=== PATIENT | female | born 1955 | race Two or more races ===

== ENCOUNTER 2025-07-20 08:08 | Inpatient (IN) | payer OTHER ==
[2025-07-20] VITALS (7 sets, daily range): BP systolic 134–155; BP diastolic 56–72; PULSE 95–104; RESP 16–22; TEMP 97.8; O2SAT 94–98
[~2025-07-20] VITALS: Ht 154.9 cm; Wt 144.0 kg
[2025-07-20] MEDS: SODIUM CHLORIDE 0.9% 250 ML IV ONE (09:00)
--- NOTE | 2025-07-20 09:24 | ED.PDOC ---
History of Present Illness HPI Comments Ms. Galan is a 70 year old female with PMHx of COPD on home oxygen PRN, ESRD on dialysis - M/W/F, type 2 diabetes mellitus, hyperlipidemia, NH s/p PCI x 5 HOME, and hypothyroidism, who presents today accompanied by her , Avni, due to chief complaint of left sided flank pain. She reports that last night she had sudden onset of left sided flank described as sharp, radiating toward left lumbar and lower quadrant, 10/10 intensity, associated with nausea, vomiting, febrile sensation, chills, and weakness, without aggravating or relieving factors. She states she still produces some urine, but denies dysuria, hematuria, or changes in said urine. Additionally denies chest pain, palpitatio ns, light headedness, cough, nasal congestion or discharge, and loss of consciousness. Due to persistence of symptoms, she presents to ED for further evaluation. 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 Family History Family History: Family hx of DM Social History Smoker: Non-Smoker Alcohol: Denies ETOH Use Drugs: Denies Drug Use Lives In: Home Constitutional: reports: chills, weakness, others (Febrile sensation ); denies: diaphoresis, fatigue, malaise, sweats EENTM: denies: blurred vision, double vision, ear discharge, ear drainage, ear pain, ear ringing, eye pain, eye redness, hearing loss, mouth pain, nasal discharge, nose bleeding, nose congestion, nose pain, photophobia, tearing, throat pain, throat swelling Respiratory: reports: cough, SOB at rest; denies: hemoptysis, orthopnea, shortness of breath Cardiovascular: denies: chest pain, dizzy spells, diaphoresis, Dyspnea on exertion, edema, irregular heart beat, left arm pain, lightheadedness, palpitations Gastrointestinal: reports: abdominal pain, diarrhea, nausea, vomiting; denies: abdomen distended, blood streaked bowels, constipated, dysphagia, difficulty swallowing, hematemesis, melena, poor appetite, poor fluid intake, rectal bleeding, rectal pain Genitourinary: reports: flank pain; denies: abnormal vagina bleeding, burning, dysuria, frequency, hematuria, incontinence, pain, urgency Neurological: denies: dizziness, fainting, headache, left sided numbness, left sided weakness, numbness, paresthesia, pre-existing deficit, right sided numbness, right sided weakness, seizure, speech problems, tingling, tremors, weakness Musculoskeletal: denies: back pain, joint pain, joint swelling, muscle pain, muscle stiffness, neck pain Integumetry: denies: bruises, change in color, laceration, lesions, lumps, rash, wounds Physical Exam General Appearance: Mild Distress, Obese HEENT: Normal ENT Inspection, PERRL/EOMI, Pharynx Normal Neck: Full Range of Motion, Non-Tender, Normal Inspection Respiratory: Chest Non-Tender, Crackles (Bilateral lower melchor ), No Accessory Muscle Use, No Respiratory Distress Cardiovascular: No JVD, No Murmur, Normal Peripheral Pulses, Regular Rate/Rhythm, Other (Mild bilateral pitting edema +1) Breast Exam: Deferred Gastrointestinal: No Pulsatile Mass, Normal Bowel Sounds, Soft, Tenderness (Pain to palpation of L lumbar and lower quadrant, Left CVA tenderness on percussion, no rebound tenderness or guarding present ) Genitalia: Deferred Pelvic: Deferred Rectal: Deferred Extremities: Decreased range of motion (Decreased range of motion due to habitus ), Leg edema (Bilateral pitting edema +1 ), No calf tenderness, Normal capillary refill, Non-tender Neurologic: Alert, Normal Affect, Normal Mood, No Sensory Deficits Cerebellar Function: Normal Reflexes: NOT DONE Skin: Normal Color Lymphatic: No Adenopathy Was a procedure done? Was a procedure done?: No EKG EKG : Pulse Rate (adult): 117 Cardiac Rhythm: ST Block: None Hypertrophy: AMBREEN ST: Old, Inf, Infarct Differential Dx Considerations may include: Sepsis, UTI, pyelonephritis nephrolithiasis, ureterolithiasis, pancreatitis, acute gastritis, acute gastroenteritis, colitis, pneumonia X-Ray, Labs, Meds, VS Vital Signs Date Time Temp Pulse Resp B/P (MAP) Pulse Ox O2 Delivery O2 Flow Rate FiO2 07/20/25 10:28 117 07/20/25 10:21 22 94 Nasal Cannula* 2 28 07/20/25 10:01 99 28 169/61 (97) 98 07/20/25 08:38 100 16 98 Nasal Cannula* 4 36 07/20/25 08:37 98.1 100 33 157/70 (99) 98 98.1 07/20/25 08:10 98.3 102 18 184/96 87 98.3 Lab Test 07/20/25 12:00 07/20/25 11:50 07/20/25 10:14 07/20/25 09:09 Range/Units Troponin I High Sensitivity 40 *H 39 *H 39 *H </=34 ng/L POC Glucose 227 H 70-106 mg/dl White Blood Count 13.0 H 4.4-10.8 10^3/uL Red Blood Count 4.95 4.0-5.20 10^6/uL Hemoglobin 12.3 12.2-16.2 g/dL Hematocrit 39.7 36.0-46.0 % Mean Corpuscular Volume 80.2 80.0-100.0 fL Mean Corpuscular Hemoglobin 24.9 L 28.0-32.0 pg Mean Corpuscular Hemoglobin Concent 31.1 L 32.0-36.0 g/dL Red Cell Distribution Width 17.0 H 11.8-14.3 % Platelet Count 206 140-450 10^3/uL Mean Platelet Volume 8.0 6.9-10.8 fL Neutrophils (%) (Auto) 87.7 H 37.0-80.0 % Lymphocytes (%) (Auto) 4.5 L 10.0-50.0 % Monocytes (%) (Auto) 6.4 0.0-12.0 % Eosinophils (%) (Auto) 0.9 0.0-7.0 % Basophils (%) (Auto) 0.5 0.0-2.0 % Neutrophils # (Auto) 11.4 H 1.6-8.6 10 ^3/uL Lymphocytes # (Auto) 0.6 0.4-5.4 10 ^3/uL Monocytes # (Auto) 0.8 0-1.3 10 ^3/uL Eosinophils # (Auto) 0.1 0-0.8 10 ^3/uL Basophils # (Auto) 0.1 0-0.2 10 ^3/uL Nucleated Red Blood Cells 0.0 % Sodium Level 138 136-145 mmol/L Potassium Level 5.6 *H 3.5-5.1 mmol/L Chloride Level 98 98-107 mmol/L Carbon Dioxide Level 29 20-31 mmol/L Anion Gap 11 5-15 Blood Urea Nitrogen 58 H 9-23 mg/dL Creatinine 11.18 *H 0.550-1.02 mg/dL Glomerular Filtration Rate Calc 3 >90 mL/min BUN/Creatinine Ratio 5.2 L 10.0-20.0 Serum Glucose 214 H 74-106 mg/dL Lactic Acid Level 1.1 0.4-2.0 mmol/L Calcium Level 8.8 8.7-10.4 mg/dL Total Bilirubin 0.2 0.2-1.0 mg/dL Aspartate Amino Transferase (AST) 10 L 13-40 U/L Alanine Aminotransferase (ALT) < 9 7-40 U/L Alkaline Phosphatase 201 H 46-116 U/L Total Protein 7.6 5.7-8.2 g/dL Albumin 4.1 3.2-4.8 g/dL Lipase 37 12-53 U/L Current Medications Medications (Trade) Dose Ordered Sig/Amena Route Start Time Stop Time Status Last Admin Sodium Chloride 250 ml @ 250 mls/hr Q1H ONCE IV 07/20/25 09:00 07/20/25 09:59 DC 07/20/25 09:00 Ceftriaxone Sodium 50 ml @ 100 mls/hr ONCE ONCE IV 07/20/25 09:00 07/20/25 09:29 DC 07/20/25 10:05 Calcium Gluconate/ Sodium Chloride 50 ml @ 120 mls/hr ONCE ONCE IV 07/20/25 10:15 07/20/25 10:43 DC 07/20/25 11:30 Aspirin 81 mg ONCE ONCE PO 07/20/25 10:45 07/20/25 10:46 DC 07/20/25 11:44 Clopidogrel Bisulfate (Plavix) 75 mg ONCE ONCE PO 07/20/25 10:45 07/20/25 10:46 DC 07/20/25 11:43 Acetaminophen/ Hydrocodone Bitart (Lee 5/325MG Tab) 1 tab ONCE ONCE PO 07/20/25 11:45 07/20/25 11:46 DC 07/20/25 11:45 Time of 1ST Reevaluation: 10:17 Reevaluation 1ST: Improved Patient Education/Counseling: Diagnosis, Treatment Family Education/Counseling: Diagnosis, Treatment Comments Patient presented today with chief complaint of left-sided flank pain. On evaluation, the patient was tachycardic, hypertensive, and saturating 87%, for which she was started on supplemental oxygen at 4 L/min via [place] Physical exam is positive for bilateral lower lobe crackles, pain on palpation of left lumbar and lower quadrant, Left CVA tenderness, and mild bilateral lower extremity pitting edema +1. CBC significant for leukocytosis with neutrophilia, CMP shows hyperkalemia 5.6, creatinine 11.1 (for which Lasix, insulin and albuterol were given) Chest xray shows bilateral pleural effusions with cardiomegaly AB CT shows atrophic kidneys without acute findings Blood cultures were drawn, fluids were given, and IV antibiotics were initiated She is due for dialysis today, for which the [facility] has been consulted She will be admitted for further work up and management SEPSIS Sepsis Screen Date sepsis recognized/suspect: Jul 20, 2025 Time Sepsis recognized/suspect: 0810 Recent Procedure: No On Antibiotic Therapy: No Respiratory Rate >20: No Heart Rate >90: Yes Temp<36 C (96.8 F) or >38.3 C: No SBP <90 or MAP <65 mmHG: No New Acute Mental Status Change: No Is the patient on CPAP, BIPAP,: No Physician Orders Blood Culture (07/20/25 08:45) Ct Ab Pel Wo Con-No Oral Or Iv (07/20/25 08:45) Urinalysis (07/20/25 08:45) Electrocardigram (07/20/25 08:45) Electrocardigram (07/20/25 09:45) *Dr. Angelika Chanel -Da Deanne (07/20/25 08:45) Chest Xray 1 View (07/20/25 09:12) Potassium (07/20/25 14:07) Echo 2d Mode Cardiac Dop (07/20/25 10:07) Vital Signs Date Time Temp Pulse Resp B/P (MAP) Pulse Ox O2 Delivery O2 Flow Rate FiO2 07/20/25 10:28 117 07/20/25 10:21 22 94 Nasal Cannula* 2 28 07/20/25 10:01 99 28 169/61 (97) 98 07/20/25 08:38 100 16 98 Nasal Cannula* 4 36 07/20/25 08:37 98.1 100 33 157/70 (99) 98 98.1 07/20/25 08:10 98.3 102 18 184/96 87 98.3 Laboratory Tests Test 07/20/25 09:09 Lactic Acid Level 1.1 mmol/L (0.4-2.0) White Blood Count 13.0 10^3/uL (4.4-10.8) H Medications Medications Dose Ordered Sig/Amena Route Start Time Stop Time Status Last Admin Dose Admin Acetaminophen/ Hydrocodone Bitart 1 tab ONCE ONCE PO 07/20/25 11:45 07/20/25 11:46 DC 07/20/25 11:45 Albuterol 20 mg STK-MED ONCE .ROUTE 07/20/25 10:20 07/20/25 10:15 DC 07/20/25 10:21 Aspirin 81 mg ONCE ONCE PO 07/20/25 10:45 07/20/25 10:46 DC 07/20/25 11:44 Calcium Gluconate/ Sodium Chloride 50 ml @ 120 mls/hr ONCE ONCE IV 07/20/25 10:15 07/20/25 10:43 DC 07/20/25 11:30 Ceftriaxone Sodium 50 ml @ 100 mls/hr ONCE ONCE IV 07/20/25 09:00 07/20/25 09:29 DC 07/20/25 10:05 Clopidogrel Bisulfate 75 mg ONCE ONCE PO 07/20/25 10:45 07/20/25 10:46 DC 07/20/25 11:43 Sodium Chloride 250 ml @ 250 mls/hr Q1H ONCE IV 07/20/25 09:00 07/20/25 09:59 DC 07/20/25 09:00 Departure 1 Departure Time of Disposition: 12:40 Impression: Primary Impression: Sepsis Disposition: 30 STILL A PATIENT Admit to: Tele Condition: Stable Critical Care Note Critical Care Time?: No Stability Stability form required: MAEVE Thorne RESIDENT Jul 20, 2025 09:24
[2025-07-20 09:38] LABS: Hemoglobin 12.3 g/dL (12.2-16.2); Nucleated Red Blood Cells % 0.0 %
--- NOTE | 2025-07-20 09:41 | DVH ---
CHEST RADIOGRAPH Indication: R/o pleural effusion Technique: Single frontal view of the chest was obtained Comparison: None FINDINGS: Lines and Tubes: None Lungs: No focal consolidation. Pleura: Small bilateral pleural effusions No pneumothorax. Cardiomediastinal contours: Cardiomegaly Bones: No acute osseous abnormality. IMPRESSION: Cardiomegaly with CHF. Small bilateral pleural effusions
[2025-07-20 09:47] LABS: Hematocrit 39.7 % (36.0-46.0); Mean Corpuscular Hemoglobin 24.9 pg (28.0-32.0); Mean Corpuscular Volume 80.2 fL (80.0-100.0)
[2025-07-20 09:51] LABS: Albumin 4.1 g/dL (3.2-4.8); Anion Gap 11 (5-15); BUN/Creatinine Ratio 5.2 (10.0-20.0); Calcium 8.8 mg/dL (8.7-10.4); Carbon Dioxide 29 mmol/L (20-31); Sodium 138 mmol/L (136-145); Total Protein 7.6 g/dL (5.7-8.2)
[2025-07-20 09:52] LABS: Blood Urea Nitrogen 58 mg/dL (9-23); Chloride 98 mmol/L (98-107); Glucose 214 mg/dL (74-106)
[2025-07-20 09:53] LABS: Alanine Aminotransferase < 9 U/L (7-40); Alkaline Phosphatase 201 U/L (46-116); Bilirubin, Total 0.2 mg/dL (0.2-1.0)
[2025-07-20 09:57] LABS: Potassium 5.6 mmol/L (3.5-5.1)
--- NOTE | 2025-07-20 10:03 | DVH ---
Exam: CT CT AB PEL WO CON-NO ORAL OR IV History: R/o Nephrolithiasis. Pain. Comparison Study: None Technique: Multidetector spiral CT of the abdomen was performed from lung bases to pubic symphysis. I maging was performed without IV contrast. Axial, coronal and sagittal multiplanar reformats were obta ined from the axial data set by the technologist. Radiation Dose : 1. Abdomen/Pelvis: CTDIvol 27.2 mGy, DLP 1474.2 mGy*cm. Findings: Evaluation of solid organs is limited due to lack of intravenous contrast use. Lung Bases: No acute or significant lung base finding. Normal heart size. No pleural or pericardial effusion. Liver: The liver is normal in size. No focal lesions. Gallbladder and Biliary Tree: Gallbladder is surgically absent. Spleen: Small calcified splenic granulomas. Pancreas: The pancreas is grossly normal in appearance. Adrenal Glands: Unremarkable Kidneys: Kidneys are atrophic. Vascular calcifications. No definite renal calculi. No hydronephrosis . Bladder: Grossly unremarkable for degree of distention. Bowel: The stomach is grossly normal in appearance. Small bowel and colon are normal in caliber and d istribution. The appendix is not visualized; however, no secondary findings of acute appendicitis elena ntified. Ascites: Absent Lymphadenopathy: No mesenteric, retroperitoneal or periportal lymphadenopathy. Abdominal Wall and Mesentery: Unremarkable. Vasculature: The visualized abdominal aorta is normal in size and caliber. Evaluation of abdominal a nd pelvic vessels is limited due to lack of intravenous contrast. Pelvic Organs: Unremarkable Musculoskeletal: No aggressive focal bony lesions, acute fractures or dislocation. IMPRESSION: No acute abdominal or pelvic findings. Atrophic kidneys. Radiation optimization: All CT scans at this facility use at least one of these dose optimization junior hniques: automated exposure control mA and/or kV adjustment per patient size (includes targeted exam s where dose is matched to clinical indication) or iterative reconstruction.
[2025-07-20] MEDS: ALBUTEROL SULF 2.5 MG/0.5ML(0.5%) NEB SOLN NEB ONE (10:15)
[2025-07-20] MEDS: ALBUTEROL SULF 2.5 MG/0.5ML(0.5%) NEB SOLN ONE (10:21)
[2025-07-20] MEDS: CALCIUM GLUC 1,000mg/50ml-NS 50 ML IV ONE (11:30)
[2025-07-20] MEDS: CLOPIDOGREL BISULFATE 75 MG TAB PO ONE (11:43)
[2025-07-20] MEDS: HYDROcodone-ACET 5/325MG TAB PO ONE (11:45)
--- NOTE | 2025-07-20 12:40 | DVHSR ---
APPROVED REPORT EXAM: LIMITED Two-dimensional and M-mode echocardiogram with Doppler and color Doppler. Blood Pressure: 157/70 mmHg INDICATION Eval EF RISK FACTORS Obesity: Height: 5'0", Weight: 289 DIMENSIONS LVDd (3.8-5.7cm)LA (2D)4.6 (1.9-4.0cm)Aortic Root (2.0-3.7cm) EF (%) 56.0 (55-70%)Rt. Atrium4.8 (1.9-4.0cm)Asc. Aorta cm Mitral Valve MitralMitral Stenosis E/A ratio0.02D MVAcm2 Aortic Valve Aortic ValveAortic Stenosis V14.38m/Jesica Mean GR.7mmHg V21.76m/Jesica Peak GR.12mmHg LVOT Diameter1.8 (1.8-2.4cm)Doppler AVA6.33cm2 Other Information Quality : Technically LimitedRhythm : Tachycardia Technically limited study due to body habitus. Conclusion lvef 45% apex is hypokinetic pt has LVOT obstruction with AV vmax of 4m/s this rasies the suspicion for HOCM, left atrium enlarged given pts large body habitus , further imaging like MRI is ideal at tertiary care center
--- NOTE | 2025-07-20 13:13 | ECG ---
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
[2025-07-20] MEDS ORDERED: MORPHINE SULFATE INJ 2 MG/ml SYRG IV PRN (13:15)
[2025-07-20] MEDS ORDERED: NITROGLYCERIN 0.4 MG SL TAB SL PRN (13:15)
[2025-07-20] MEDS ORDERED: DOCUSATE SOD 100 MG CAP PO PRN (13:15)
[2025-07-20] MEDS ORDERED: ONDANSETRON HCL 4 MG/2 ML VIAL IV PRN ×2 (13:15→13:30)
--- NOTE | 2025-07-20 13:52 | DVHHP2 ---
History of Present Illness Reason for Visit: Shortness of breath History of Present Illness Mariposa Galan is a 70-year-old female with past medial history of diabetes, ESRD on HD M,W,F, COPD, home oxygen as needed, NM, hypothyroidism, and hyperlipidemia, who came to the hospital for abdominal pain. Patient is visiting family from out of state. She states last night she began experiencing left back pain. She thought it would go away. Then in the morning the pain worsened and was now in her back and left pelvic region. She was also becoming short of breath. She has home oxygen ordered that she uses as needed, but she does not travel with it due to the [facility] regulations. Patient had scheduled PTCA after a positive stress test 3 weeks ago. She had 2 stents placed, making her have a total of 5 stents. Cardiovascular: HTN, NM, hyperipidemia, Other (PTCA with 5 stents) Pulmonary: COPD (home oxygen as needed) Renal/: Chronic renal failure Endocrine: Diabetes, Hypothyroidism Past Surgical History: Cholecystectomy, (x 3), Other (hemorrhoid surgery, left arm fistula, PTCA with 5 stents) Smoke: No ALCOHOL: none Drugs: None Lives: with Family Domestic Violence: Neg Review of Systems Constitutional: No: Fever, Chills, Sweats, Weakness, Malaise, Other Eyes: No: Pain, Vision change, Conjunctivae inflammation, Eyelid inflammation, Other, Redness ENT: No: Ear pain, Ear discharge, Nose pain, Nose discharge, Nose congestion, M outh pain, Mouth swelling, Throat pain, Throat swelling, Other Respiratory: Cough, Shortness of breath, Wheezing; No: Dry, SOB with excertion, Hemoptysis, Pleuritic Pain, Sputum, Wheezing, Other Cardiovascular: No: Chest Pain, Palpitations, Orthopnea, Paroxysmal Noc. Dyspnea, Edema, Lt Headedness, Other Gastrointestinal: Abdominal Pain; No: Nausea, Vomiting, Diarrhea, Constipation, Melena, Hematochezia, Other Genitourinary: No Dysuria, No Frequency, No Incontinence, No Hematuria, No Retention, No Other Musculoskeletal: back pain; No: other, neck pain, shoulder pain, arm pain, hand pain, leg pain, foot pain Skin: No: Rash, Lesions, Jaundice, Bruising, Other Neurological: No: Weakness, Numbness, Incoordination, Change in speech, Confusion, Seizures, Other Allergies: Coded Allergies: Latex (Verified Allergy, Unknown, 07/20/25) Exam Vital Signs Vital Signs Date Time Temp Pulse Resp B/P (MAP) Pulse Ox O2 Delivery O2 Flow Rate FiO2 07/20/25 13:04 116 07/20/25 10:21 22 94 Nasal Cannula* 2 28 07/20/25 10:01 169/61 (97) 07/20/25 08:37 98.1 98.1 General Appearance: Alert, Oriented X3, Cooperative, moderate distress HEENT: Atraumatic, PERRLA Respiratory: Other (bilateral wheezing) Cardiovascular: Regular rate, Normal S1, Normal S2, Other (left arm fistula) Abdominal: Normal bowel sounds, Soft, No tenderness, No hepatospenomegaly Extremities: No clubbing, No cyanosis, No edema, Normal pulses Skin: No rashes, No breakdown, No significant lesion Neuro: Normal gait, Normal speech, Strength at 5/5 X4 ext Psych/Mental Status: Mental status NL, Mood NL Labs/Xrays Labs Test 07/20/25 12:00 07/20/25 11:50 07/20/25 09:09 Range/Units Troponin I High Sensitivity 40 *H </=34 ng/L POC Glucose 227 H 70-106 mg/dl White Blood Count 13.0 H 4.4-10.8 10^3/uL Red Blood Count 4.95 4.0-5.20 10^6/uL Hemoglobin 12.3 12.2-16.2 g/dL Hematocrit 39.7 36.0-46.0 % Mean Corpuscular Volume 80.2 80.0-100.0 fL Mean Corpuscular Hemoglobin 24.9 L 28.0-32.0 pg Mean Corpuscular Hemoglobin Concent 31.1 L 32.0-36.0 g/dL Red Cell Distribution Width 17.0 H 11.8-14.3 % Platelet Count 206 140-450 10^3/uL Mean Platelet Volume 8.0 6.9-10.8 fL Neutrophils (%) (Auto) 87.7 H 37.0-80.0 % Lymphocytes (%) (Auto) 4.5 L 10.0-50.0 % Monocytes (%) (Auto) 6.4 0.0-12.0 % Eosinophils (%) (Auto) 0.9 0.0-7.0 % Basophils (%) (Auto) 0.5 0.0-2.0 % Neutrophils # (Auto) 11.4 H 1.6-8.6 10 ^3/uL Lymphocytes # (Auto) 0.6 0.4-5.4 10 ^3/uL Monocytes # (Auto) 0.8 0-1.3 10 ^3/uL Eosinophils # (Auto) 0.1 0-0.8 10 ^3/uL Basophils # (Auto) 0.1 0-0.2 10 ^3/uL Nucleated Red Blood Cells 0.0 % Sodium Level 138 136-145 mmol/L Potassium Level 5.6 *H 3.5-5.1 mmol/L Chloride Level 98 98-107 mmol/L Carbon Dioxide Level 29 20-31 mmol/L Anion Gap 11 5-15 Blood Urea Nitrogen 58 H 9-23 mg/dL Creatinine 11.18 *H 0.550-1.02 mg/dL Glomerular Filtration Rate Calc 3 >90 mL/min BUN/Creatinine Ratio 5.2 L 10.0-20.0 Serum Glucose 214 H 74-106 mg/dL Lactic Acid Level 1.1 0.4-2.0 mmol/L Calcium Level 8.8 8.7-10.4 mg/dL Total Bilirubin 0.2 0.2-1.0 mg/dL Aspartate Amino Transferase (AST) 10 L 13-40 U/L Alanine Aminotransferase (ALT) < 9 7-40 U/L Alkaline Phosphatase 201 H 46-116 U/L Total Protein 7.6 5.7-8.2 g/dL Albumin 4.1 3.2-4.8 g/dL Lipase 37 12-53 U/L CHEST RADIOGRAPH FINDINGS: Lines and Tubes: None Lungs: No focal consolidation. Pleura: Small bilateral pleural effusions No pneumothorax. Cardiomediastinal contours: Cardiomegaly Bones: No acute osseous abnormality. IMPRESSION: Cardiomegaly with CHF. Small bilateral pleural effusions Exam: CT CT AB PEL WO CON-NO ORAL OR IV Findings: Evaluation of solid organs is limited due to lack of intravenous contrast use. Lung Bases: No acute or significant lung base finding. Normal heart size. No pleural or pericardial effusion. Liver: The liver is normal in size. No focal lesions. Gallbladder and Biliary Tree: Gallbladder is surgically absent. Spleen: Small calcified splenic granulomas. Pancreas: The pancreas is grossly normal in appearance. Adrenal Glands: Unremarkable Kidneys: Kidneys are atrophic. Vascular calcifications. No definite renal calculi. No hydronephrosis. Bladder: Grossly unremarkable for degree of distention. Bowel: The stomach is grossly normal in appearance. Small bowel and colon are normal in caliber and distribution. The appendix is not visualized; however, no secondary findings of acute appendicitis identified. Ascites: Absent Lymphadenopathy: No mesenteric, retroperitoneal or periportal lymphadenopathy. Abdominal Wall and Mesentery: Unremarkable. Vasculature: The visualized abdominal aorta is normal in size and caliber. Evaluation of abdominal and pelvic vessels is limited due to lack of intravenous contrast. Pelvic Organs: Unremarkable Musculoskeletal: No aggressive focal bony lesions, acute fractures or dislocation. IMPRESSION: No acute abdominal or pelvic findings. Atrophic kidneys. SEPSIS Sepsis Screen Date sepsis recognized/suspect: Jul 20, 2025 Time Sepsis recognized/suspect: 1303 Recent Procedure: No On Antibiotic Therapy: No Respiratory Rate >20: Yes Heart Rate >90: Yes Temp<36 C (96.8 F) or >38.3 C: No SBP <90 or MAP <65 mmHG: No New Acute Mental Status Change: No Is the patient on CPAP, BIPAP,: No Physician Orders Blood Culture (07/20/25 08:45) Ct Ab Pel Wo Con-No Oral Or Iv (07/20/25 08:45) Urinalysis (07/20/25 08:45) Electrocardigram (07/20/25 08:45) Electrocardigram (07/20/25 09:45) *Dr. Angelika Chanel -Da Deanne (07/20/25 08:45) Chest Xray 1 View (07/20/25 09:12) Potassium (07/20/25 14:07) Echo 2d Mode Cardiac Dop (07/20/25 10:07) Admit (07/20/25 13:01) Code Status (07/20/25 13:01) Renal Standard(2gna,3gk,Lopho) (07/20/25 Lunch) Sodium Chloride Lock (Saline Lock Ns) (07/20/25 14:00) Hydrocodone-Acet 5/325mg Tab ([place] 5/32 (07/20/25 13:15) Ondansetron Hcl (Zofran) (07/20/25 13:15) Docusate Sodium Capsule (Colace Capsule) (07/20/25 13:15) Complete Blood Count (07/21/25 04:00) Comprehensive Metabolic Panel (07/21/25 04:00) Condition: Serious (07/20/25 13:01) Acetaminophen Tablet (Tylenol Tablet) (07/20/25 13:15) Nitroglycerin Sublingual (Ntrostat Subli (07/20/25 13:15) Morphine Sulfate Injection (07/20/25 13:15) Stat Ekg For Chest Pain (07/20/25 13:01) Notify Md Of Changes From Base (07/20/25 13:01) School Laboratory Technician For 24 Hours (07/20/25 13:01) Emergency Dysrhythmia Protocol (07/20/25 13:) Rhythm Strips Once Every Shift (07/20/25 13:01) Oxygen By Nasal Cannula (07/20/25 13:01) Maintain Fluid Restrictions QSHIFT (07/20/25 13:01) Vital Signs Date Time Temp Pulse Resp B/P (MAP) Pulse Ox O2 Delivery O2 Flow Rate FiO2 07/20/25 13:04 116 07/20/25 12:58 117 07/20/25 10:28 117 07/20/25 10:21 22 94 Nasal Cannula* 2 28 07/20/25 10:01 99 28 169/61 (97) 98 07/20/25 08:38 100 16 98 Nasal Cannula* 4 36 07/20/25 08:37 98.1 100 33 157/70 (99) 98 98.1 07/20/25 08:10 98.3 102 18 184/96 87 98.3 Laboratory Tests Test 07/20/25 09:09 Lactic Acid Level 1.1 mmol/L (0.4-2.0) White Blood Count 13.0 10^3/uL (4.4-10.8) H Medications Medications Dose Ordered Sig/Amena Route Start Time Stop Time Status Last Admin Dose Admin Acetaminophen/ Hydrocodone Bitart 1 tab ONCE ONCE PO 07/20/25 11:45 07/20/25 11:46 DC 07/20/25 11:45 1 TAB Albuterol 20 mg STK-MED ONCE .ROUTE 07/20/25 10:20 07/20/25 10:15 DC 07/20/25 10:21 20 MG Aspirin 81 mg ONCE ONCE PO 07/20/25 10:45 07/20/25 10:46 DC 07/20/25 11:44 81 MG Calcium Gluconate/ Sodium Chloride 50 ml @ 120 mls/hr ONCE ONCE IV 07/20/25 10:15 07/20/25 10:43 DC 07/20/25 11:30 120 MLS/HR Ceftriaxone Sodium 50 ml @ 100 mls/hr ONCE ONCE IV 07/20/25 09:00 07/20/25 09:29 DC 07/20/25 10:05 100 MLS/HR Clopidogrel Bisulfate 75 mg ONCE ONCE PO 07/20/25 10:45 07/20/25 10:46 DC 07/20/25 11:43 75 MG Sodium Chloride 250 ml @ 250 mls/hr Q1H ONCE IV 07/20/25 09:00 07/20/25 09:59 DC 07/20/25 09:00 250 MLS/HR Assessment/Plan Assessment/Plan Assessment: Acute hypoxic respiratory failure, Hyperkalemia, Hyperglycemia, Pleural effusions, Leukocytosis, Chronic kidney disease on HD, Hyperlipidemia, Hypothyroidism, Plan: Admit to Tele, Nephrology consult, Hyperkalemia protocol, A1c, IV antibiotics, Fluid restrictions, Supplemental oxygen as needed, Breathing treatments, Accu checks Q AC & HS with sliding scale, Home medications reconciled, Plan discussed with: Patient, Spouse My Orders Orders - HEAVEN DELONG Procedure Category Date Status Time Admit ADMIT 07/20/25 Verified 13:01 Code Status CODE 07/20/25 Verified 13:01 Renal DIET 07/20/25 Verified Standard(2gna,3gk,Lopho) Lunch Sodium Chloride Lock PHA 07/20/25 Verified (Saline Lock Ns) 14:00 Hydrocodone-Acet PHA 07/20/25 Verified 5/325mg Tab ([place] 13:15 Ondansetron Hcl PHA 07/20/25 Verified (Zofran) 13:15 Docusate Sodium PHA 07/20/25 Verified Capsule (Colace 13:15 Complete Blood Count LAB 07/21/25 Verified 04:00 Comprehensive LAB 07/21/25 Verified Metabolic Panel 04:00 Condition: Serious SONJA 07/20/25 Verified 13:01 Acetaminophen Tablet PHA 07/20/25 Verified (Tylenol Tablet) 13:15 Nitroglycerin PHA 07/20/25 Verified Sublingual (Ntrostat 13:15 Morphine Sulfate PHA 07/20/25 Verified Injection 13:15 Stat Ekg For Chest [facility] 07/20/25 Verified Pain 13:01 Notify Md Of Changes [facility] 07/20/25 Verified From Base 13:01 School Laboratory Technician For [facility] 07/20/25 Verified 24 Hours 13:01 Emergency Dysrhythmia [facility] 07/20/25 Verified Protocol 13:01 Rhythm Strips Once [facility] 07/20/25 Verified Every Shift 13:01 Oxygen By Nasal RT 07/20/25 Verified Cannula 13:01 Maintain Fluid [facility] 07/20/25 Verified Restrictions 13:01 Date of Service: Jul 20, 2025 Billing Provider: HEAVEN DELONG Common Visit Codes: [id number] INP/OBS CARE (MOD) HEAVEN DELONG Jul 20, 2025 13:52
[2025-07-20] MEDS: DEXTROSE (50%) 50ML SYRG IV ONE ×2 (13:53→14:47)
[2025-07-20] MEDS: FUROSEMIDE 20 MG/2 ML VIAL IV ONE ×2 (13:53→14:47)
[2025-07-20] MEDS: InsuLIN REG 1unit/0.01ml Soln (100units/ml) IV ONE ×2 (13:53→14:49)
[2025-07-20] MEDS: SODIUM CHLOR 0.9% PF (SALINE LOCK) 10ML VIAL/SYR IV SCH (14:11)
[2025-07-20] MEDS ORDERED: SEVE800T10 PO (14:54)
[2025-07-20] MEDS ORDERED: CLOP75TA28 PO (14:54)
[2025-07-20] MEDS ORDERED: ASPI1TAB20 PO (14:54)
[2025-07-20] MEDS ORDERED: LEVO150T10 PO (14:54)
[2025-07-20] MEDS ORDERED: INSLANTI SC (14:54)
[2025-07-20] MEDS ORDERED: ROSU10TA64 PO (14:54)
[2025-07-20] MEDS ORDERED: DEXTROSE (50%) 50ML SYRG IV PRN (15:00)
[2025-07-20] MEDS: SODIUM CHL 0.9% 1000 ML BAG XX ONE (16:30)
[2025-07-20] MEDS: IPRATROPIUM BROM 0.5 MG/2.5ML INH SOL NEB SCH (18:00)
[2025-07-20] MEDS: ALBUTEROL SULF 2.5 MG/0.5ML(0.5%) NEB SOLN NEB SCH (18:00)
[2025-07-20] MEDS: InsuLIN REG 1unit/0.01ml Soln (100units/ml) SC SCH ×2 (18:17→22:45)
[2025-07-20] MEDS: ACCU-CHEK COMFORT CURVE STRIP VI SCH (18:17)
--- NOTE | 2025-07-20 18:42 | DVHINCON2 ---
DATE OF CONSULTATION: 07/20/2025 CONSULTING PHYSICIAN: Eleazar Mccormack MD REASON FOR CONSULTATION: Management of dialysis. HISTORY OF PRESENT ILLNESS: The patient is a 70-year-old -Citizen Of [place] female who is visiting from another state. She is undergoing dialysis treatments in our clinic for 1 week and she is planning to return to [place] 4 days from now. She presented to the Emergency Room today complaining of abdominal pain. So far, the workup and imaging of the abdomen are unremarkable. She is feeling better; however, she has missed her dialysis treatment today because she is still in the Emergency Room. She is going to be admitted for observation until tomorrow and being consulted to give her, her dialysis treatment while she is there. REVIEW OF SYSTEMS: Otherwise unremarkable. She denies any chest pain. No shortness of breath. No leg edema. No other symptoms. PAST MEDICAL HISTORY: Significant for diabetes, hypertension, and heart disease. She has been on dialysis for 8 years. She has a working fistula in her left arm. REVIEW OF SYSTEMS: Otherwise unremarkable. SOCIAL HISTORY: She denies smoking cigarettes, drinking alcohol, or using illicit drugs. FAMILY HISTORY: Noncontributory. MEDICATIONS IN THE HOSPITAL: Include insulin, Plavix, aspirin, Zofran, nitroglycerin, acetaminophen, and docusate. PHYSICAL EXAMINATION: VITAL SIGNS: Blood pressure is ____, heart rate 110, respirations 25, temperature 98. GENERAL: The patient is an elderly -Citizen [place] female, moderately obese, who seems to be chronically ill, in no acute distress. Alert and oriented x3. HEENT: Unremarkable. Oral mucosa is pale and dry. LUNGS: Clear to auscultation. CARDIOVASCULAR: Shows regular rate. No gallops. No murmurs. ABDOMEN: Soft, mildly distended. Bowel sounds are normal in intensity and frequency. No organomegaly. No ascites. No tenderness to palpation in any specific areas. EXTREMITIES: Showed no clubbing, cyanosis or edema. Her left arm has an AV fistula that is patent with 2 button holes. NEUROLOGIC: Nonfocal. LABORATORY FINDINGS: Hemoglobin is 12.3, sodium is 138, potassium 5.6, creatinine 11. ASSESSMENT AND PLAN: * End-stage renal disease, mild uremic toxin build-up. * Mild hyperkalemia. * Renal disease, hemoglobin is stable. * Abdominal pain of unclear etiology. Imaging is negative. * Controlled hypertension. * Diabetic nephropathy. The patient will be scheduled to have dialysis today with a low potassium bath. We will remove 2 liters of fluid. If her clinical progress is good, she could be discharged home by tomorrow so she can return home . Thank you for the consultation. MD SURESH Ernst/ALISA/GRIFFIN/PRAVIN TID: [id number] RECEIPT: [id number]
[2025-07-20] MEDS: ATORVASTATIN 20 MG TAB PO SCH (22:45)
[2025-07-21] VITALS (19 sets, daily range): BP systolic 102–137; BP diastolic 52–70; PULSE 91–115; RESP 14–20; TEMP 97.4–98.1; O2SAT 79–100
[2025-07-21 07:19] LABS: Hematocrit 38.0 % (36.0-46.0); Hemoglobin 11.8 g/dL (12.2-16.2); Mean Corpuscular Hemoglobin 25.1 pg (28.0-32.0); Mean Corpuscular Volume 80.8 fL (80.0-100.0); Nucleated Red Blood Cells % 0.0 %
[2025-07-21 07:28] LABS: Albumin 3.3 g/dL (3.2-4.8); Anion Gap 12 (5-15); BUN/Creatinine Ratio 5.0 (10.0-20.0); Bilirubin, Total 0.3 mg/dL (0.2-1.0); Potassium 5.1 mmol/L (3.5-5.1); Sodium 142 mmol/L (136-145); Total Protein 6.2 g/dL (5.7-8.2)
[2025-07-21 07:33] LABS: Alanine Aminotransferase 9 U/L (7-40); Alkaline Phosphatase 163 U/L (46-116); Blood Urea Nitrogen 45 mg/dL (9-23); Calcium 8.2 mg/dL (8.7-10.4); Carbon Dioxide 32 mmol/L (20-31); Chloride 98 mmol/L (98-107); Glucose 111 mg/dL (74-106)
[2025-07-21] MEDS: LEVOTHYROXINE SODIUM 50 MCG TAB PO SCH (08:50)
[2025-07-21] MEDS: SEVELAMER 800 MG TAB PO SCH (08:50)
[2025-07-21] MEDS: ASPirin-EC 81 mg tab PO SCH (08:51)
[2025-07-21] MEDS: CLOPIDOGREL BISULFATE 75 MG TAB PO SCH (08:52)
[2025-07-21] MEDS: INSULIN LANTUS (GLARGINE) 1 /0.01ml (100units/ml) SC SCH (08:54)
--- NOTE | 2025-07-21 13:34 | DVHPN2 ---
Progress Note - Dictate Date Seen: Jul 21, 2025 Has the PT tested + for MRSA If YES, has PT been informed?: No Medical Necessity Reason Pt with a Central, PICC or Fol: No Subjective Feels better vital signs Vital Sign Date Time Temp Pulse Resp B/P (MAP) Pulse Ox O2 Delivery O2 Flow Rate FiO2 07/21/25 10:21 96 16 100 07/21/25 09:00 97.7 129/70 (89) 97.7 07/21/25 08:00 Nasal Cannula* 1 24 Total Intake and Output 07/20/25 07/20/25 07/21/25 15:00 23:00 07:00 Intake Total 350 ml 480 ml Balance 350 ml 480 ml medications Current Medications Medications Dose Ordered Sig/Amena Route Start Time Stop Time Status Last Admin Dose Admin Sodium Chloride 10 ml Q8HR IV 07/20/25 14:00 07/21/25 06:19 10 ML Acetaminophen/ Hydrocodone Bitart 1 tab Q4HP PRN PO 07/20/25 13:15 Docusate Sodium 100 mg BIDPRN PRN PO 07/20/25 13:15 Acetaminophen 650 mg Q6HP PRN PO 07/20/25 13:15 Nitroglycerin 0.4 mg Q5MINP PRN SL 07/20/25 13:15 Morphine Sulfate 2 mg Q30M PRN IV 07/20/25 13:15 Ondansetron HCl 4 mg Q4HP PRN IV 07/20/25 13:30 Diagnostic Test (Pha) 1 strip ACHS 07/20/25 17:00 07/21/25 11:13 1 STRIP Insulin Human Regular HS SC 07/20/25 22:00 07/20/25 22:45 6 UNITS Insulin Human Regular AC SC 07/20/25 17:00 07/21/25 11:13 9 UNITS Dextrose 50 ml UD PRN IV 07/20/25 15:00 Aspirin 81 mg DAILY PO 07/21/25 10:00 07/21/25 08:51 81 MG Clopidogrel Bisulfate 75 mg DAILY PO 07/21/25 10:00 07/21/25 08:52 75 MG Insulin Glargine 10 units DAILY SC 07/21/25 10:00 07/21/25 08:54 10 UNITS Levothyroxine Sodium 150 mcg DAILY PO 07/21/25 10:00 07/21/25 08:50 150 MCG Atorvastatin Calcium 20 mg HS PO 07/20/25 22:00 07/20/25 22:45 20 MG Sevelamer HCl 2,400 mg TIDWM PO 07/21/25 08:00 07/21/25 11:14 2,400 MG Ipratropium [place] 0.5 mg Q4HWA [facility] 07/20/25 18:00 07/21/25 10:13 0.5 MG Albuterol 2.5 mg Q4HWA [facility] 07/20/25 18:00 07/21/25 10:13 2.5 MG Ceftriaxone Sodium 50 ml @ 100 mls/hr DAILY@09 IV 07/21/25 09:00 07/21/25 08:51 100 MLS/HR objective GENERAL: The patient is an elderly -[place] female, moderately obese, who seems to be chronically ill, in no acute distress. Alert and oriented x3. HEENT: Unremarkable. Oral mucosa is pale and dry. LUNGS: Clear to auscultation. CARDIOVASCULAR: Shows regular rate. No gallops. No murmurs. ABDOMEN: Soft, mildly distended. Bowel sounds are normal in intensity and frequency. No organomegaly. No ascites. No tenderness to palpation in any specific areas. EXTREMITIES: Showed no clubbing, cyanosis or edema. Her left arm has an AV fistula that is patent with 2 button holes. NEUROLOGIC: Nonfocal. laboratory and microbiology Laboratory Tests 07/21/25 05:27 Test 07/21/25 05:27 Range/Units Serum Glucose 111 H 74-106 mg/dL Assessment/Plan ASSESSMENT AND PLAN: * End-stage renal disease, mild uremic toxin build-up improved after HD yesterday * Mild hyperkalemia resolved * Anemia of renal disease, hemoglobin is stable. * Abdominal pain of unclear etiology. Imaging is negative, improved * Controlled hypertension. * Diabetic nephropathy. She could be discharged home today so she can return home to [place] on . Plan discussed with: Patient ANDRIY CUMMINS MD Jul 21, 2025 13:34
--- NOTE | 2025-07-21 14:02 | DVHPN2 ---
Reviewed: H&P Changes from previous H/P or p: No Changes General: Per HPI Eyes: No Pain, No Vision change, No Conjunctivae inflammation, No Eyelid inflammation, No Other, No Redness ENT: No Ear pain, No Ear discharge, No Nose pain, No Nose discharge, No Nose congestion, No Mouth pain, No Mouth swelling, No Throat pain, No Throat swelling, No Other Cardiovascular: No Chest Pain, No Palpitations, No Orthopnea, No Paroxysmal Noc. Dyspnea, No Edema, No Lt Headedness, No Other Respiratory: Cough; No Dry; Shortness of breath; No SOB with excertion; W heezing; No Hemoptysis, No Pleuritic Pain, No Sputum, No Other Gastrointestinal: No Nausea, No Vomiting; Abdominal Pain; No Diarrhea, No Constipation, No Melena, No Hematochezia, No Other Genitourinary: No Dysuria, No Frequency, No Incontinence, No Hematuria, No Retention, No Other Musculoskeletal: No other, No neck pain, No shoulder pain, No arm pain; back pain; No hand pain, No leg pain, No foot pain Skin: No Rash, No Lesions, No Jaundice, No Bruising, No Other Objective Vitals Vital Signs Date Time Temp Pulse Resp B/P (MAP) Pulse Ox O2 Delivery O2 Flow Rate FiO2 07/21/25 13:00 97.7 108 17 137/54 (81) 97 97.7 07/21/25 08:00 Nasal Cannula* 1 24 Intake/Output Intake and Output 07/21/25 07:00 Intake Total 830 ml Balance 830 ml Intake Oral 480 ml IV Total 350 ml Exam GEN: Healthy appearing, well-developed, NAD. HEENT: NC/AT; MMM. CV: RRR, no m/r/g. LUNGS: CTAB, no w/r/c. ABD: Hypoactive bowel sounds all melchor, mild tender to left flank and epigastrium. EXT: skin Warm, well perfused. no rashes. No clubbing, cyanosis, or edema. NEURO: Ambulating with no limitations. No focal deficits. Medications Current Medications Medications Dose Ordered Sig/Amena Route Start Time Stop Time Status Last Admin Dose Admin Sodium Chloride 10 ml Q8HR IV 07/20/25 14:00 07/21/25 13:44 10 ML Acetaminophen/ Hydrocodone Bitart 1 tab Q4HP PRN PO 07/20/25 13:15 Docusate Sodium 100 mg BIDPRN PRN PO 07/20/25 13:15 Acetaminophen 650 mg Q6HP PRN PO 07/20/25 13:15 Nitroglycerin 0.4 mg Q5MINP PRN SL 07/20/25 13:15 Morphine Sulfate 2 mg Q30M PRN IV 07/20/25 13:15 Ondansetron HCl 4 mg Q4HP PRN IV 07/20/25 13:30 Diagnostic Test (Pha) 1 strip ACHS 07/20/25 17:00 07/21/25 11:13 1 STRIP Insulin Human Regular HS SC 07/20/25 22:00 07/20/25 22:45 6 UNITS Insulin Human Regular AC SC 07/20/25 17:00 07/21/25 11:13 9 UNITS Dextrose 50 ml UD PRN IV 07/20/25 15:00 Aspirin 81 mg DAILY PO 07/21/25 10:00 07/21/25 08:51 81 MG Clopidogrel Bisulfate 75 mg DAILY PO 07/21/25 10:00 07/21/25 08:52 75 MG Insulin Glargine 10 units DAILY SC 07/21/25 10:00 07/21/25 08:54 10 UNITS Levothyroxine Sodium 150 mcg DAILY PO 07/21/25 10:00 07/21/25 08:50 150 MCG Atorvastatin Calcium 20 mg HS PO 07/20/25 22:00 07/20/25 22:45 20 MG Sevelamer HCl 2,400 mg TIDWM PO 07/21/25 08:00 07/21/25 11:14 2,400 MG Ipratropium [place] 0.5 mg Q4HWA NEB 07/20/25 18:00 07/21/25 10:13 0.5 MG Albuterol 2.5 mg Q4HWA NEB 07/20/25 18:00 07/21/25 10:13 2.5 MG Ceftriaxone Sodium 50 ml @ 100 mls/hr DAILY@09 IV 07/21/25 09:00 07/21/25 08:51 100 MLS/HR Laboratory Results Laboratory Tests 07/21/25 05:27 Chemistry Test 07/21/25 05:27 Albumin 3.3 g/dL (3.2-4.8) Calcium Level 8.2 mg/dL (8.7-10.4) L Total Protein 6.2 g/dL (5.7-8.2) LFT Test 07/21/25 05:27 Alanine Aminotransferase (ALT) 9 U/L (7-40) Alkaline Phosphatase 163 U/L (46-116) H Aspartate Amino Transferase (AST) 42 U/L (13-40) H Total Bilirubin 0.3 mg/dL (0.2-1.0) Microbiology Microbiology Date/Time Source Procedure Growth Status 07/20/25 09:09 Blood Blood Culture - Preliminary NO GROWTH AFTER 24 HOURS OF INCUBATION. Resulted Labs and/or images reviewed: Labs reviewed by me, Image(s) reviewed by me Assessment/Plan Assessment/Plan 70-year-old female with past medial history of diabetes, ESRD on HD M,W,F, COPD, home oxygen as needed, MO, hypothyroidism, and hyperlipidemia, who came to the hospital for abdominal pain. Patient is visiting family from out of state. She states last night she began experiencing left back pain. She thought it would go away. Then in the morning the pain worsened and was now in her back and left pelvic region. She was also becoming short of breath. She has home oxygen ordered that she uses as needed, but she does not travel with it due to the TSA regulations. Patient had scheduled PTCA after a positive stress test 3 weeks ago. She had 2 stents placed, making her have a total of 5 stents. Cardiovascular: HTN, MO, hyperipidemia, Other (PTCA with 5 stents) 07/21: Symptoms align with gastroenteritis. Patient had abdominal pain onset with significant diarrhea and nausea which are now improving. We will continue antibiotics. Continue dialysis for ESRD. The patient continues to improve tomorrow patient discharge. On 1 L oxygen Diagnosis: Acute hypoxic respiratory failure Aspiration pneumonitis possible Acute gastroenteritis, infectious etiology likely Hyperkalemia Hyperglycemia Pleural effusions Leukocytosis, possibly from missed dialysis diabetes ESRD on HD M,W,F COPD, home oxygen as needed MO hypothyroidism hyperlipidemia Plan: IV antibiotics Consult resume dialysis patient Insulin sliding scale moderate a.c. HS Continue home medications Pepcid 20 IV b.i.d. Tele Full code Plan discussed with: Patient Date of Service: Jul 21, 2025 Billing Provider: JOSE G ANGUIANO MD Common Visit Codes: [id number] INP/OBS CARE(HIGH) JOSE G ANGUIANO MD Jul 21, 2025 14:02
[2025-07-22] VITALS (14 sets, daily range): BP systolic 112–137; BP diastolic 41–99; PULSE 65–115; RESP 16–20; TEMP 97.2–98.6; O2SAT 93–100
[2025-07-22 08:05] LABS: Alanine Aminotransferase 11 U/L (7-40); Albumin 4.0 g/dL (3.2-4.8); Anion Gap 12 (5-15); BUN/Creatinine Ratio 3.2 (10.0-20.0); Bilirubin, Total 0.3 mg/dL (0.2-1.0); Calcium 9.0 mg/dL (8.7-10.4); Carbon Dioxide 27 mmol/L (20-31); Potassium 4.9 mmol/L (3.5-5.1); Total Protein 7.7 g/dL (5.7-8.2)
[2025-07-22 08:08] LABS: Alkaline Phosphatase 165 U/L (46-116); Blood Urea Nitrogen 34 mg/dL (9-23); Chloride 97 mmol/L (98-107); Glucose 137 mg/dL (74-106); Sodium 136 mmol/L (136-145)
--- NOTE | 2025-07-22 09:16 | DVHPN2 ---
Reviewed: H&P Changes from previous H/P or p: No Changes General: Per HPI Eyes: No Pain, No Vision change, No Conjunctivae inflammation, No Eyelid inflammation, No Other, No Redness ENT: No Ear pain, No Ear discharge, No Nose pain, No Nose discharge, No Nose congestion, No Mouth pain, No Mouth swelling, No Throat pain, No Throat swelling, No Other Cardiovascular: No Chest Pain, No Palpitations, No Orthopnea, No Paroxysmal Noc. Dyspnea, No Edema, No Lt Headedness, No Other Respiratory: Cough; No Dry; Shortness of breath; No SOB with excertion; W heezing; No Hemoptysis, No Pleuritic Pain, No Sputum, No Other Gastrointestinal: No Nausea, No Vomiting; Abdominal Pain; No Diarrhea, No Constipation, No Melena, No Hematochezia, No Other Genitourinary: No Dysuria, No Frequency, No Incontinence, No Hematuria, No Retention, No Other Musculoskeletal: No other, No neck pain, No shoulder pain, No arm pain; back pain; No hand pain, No leg pain, No foot pain Skin: No Rash, No Lesions, No Jaundice, No Bruising, No Other Objective Vitals Vital Signs Date Time Temp Pulse Resp B/P (MAP) Pulse Ox O2 Delivery O2 Flow Rate FiO2 07/22/25 05:00 97.2 109 18 124/96 (105) 98 97.2 07/21/25 22:43 Room Air* 0 21 Intake/Output Intake and Output 07/22/25 07:00 Intake Total 1530 ml Balance 1530 ml Intake Oral 1280 ml IV Total 250 ml # Voids 5 # Bowel Movements 2 Exam GEN: Healthy appearing, well-developed, NAD. HEENT: NC/AT; MMM. CV: RRR, no m/r/g. LUNGS: CTAB, no w/r/c. ABD: Hypoactive bowel sounds all melchor, mild tender to left flank and epigastrium. EXT: skin Warm, well perfused. no rashes. No clubbing, cyanosis, or edema. NEURO: Ambulating with no limitations. No focal deficits. Medications Current Medications Medications Dose Ordered Sig/Amena Route Start Time Stop Time Status Last Admin Dose Admin Sodium Chloride 10 ml Q8HR IV 07/20/25 14:00 07/22/25 06:10 10 ML Acetaminophen/ Hydrocodone Bitart 1 tab Q4HP PRN PO 07/20/25 13:15 Docusate Sodium 100 mg BIDPRN PRN PO 07/20/25 13:15 Acetaminophen 650 mg Q6HP PRN PO 07/20/25 13:15 Nitroglycerin 0.4 mg Q5MINP PRN SL 07/20/25 13:15 Morphine Sulfate 2 mg Q30M PRN IV 07/20/25 13:15 Ondansetron HCl 4 mg Q4HP PRN IV 07/20/25 13:30 Diagnostic Test (Pha) 1 strip ACHS 07/20/25 17:00 07/22/25 06:10 1 STRIP Insulin Human Regular HS SC 07/20/25 22:00 07/21/25 21:35 6 UNITS Insulin Human Regular AC SC 07/20/25 17:00 07/22/25 06:18 2 UNITS Dextrose 50 ml UD PRN IV 07/20/25 15:00 Aspirin 81 mg DAILY PO 07/21/25 10:00 07/21/25 08:51 81 MG Clopidogrel Bisulfate 75 mg DAILY PO 07/21/25 10:00 07/21/25 08:52 75 MG Insulin Glargine 10 units DAILY SC 07/21/25 10:00 07/21/25 08:54 10 UNITS Levothyroxine Sodium 150 mcg DAILY PO 07/21/25 10:00 07/21/25 08:50 150 MCG Atorvastatin Calcium 20 mg HS PO 07/20/25 22:00 07/21/25 21:34 20 MG Sevelamer HCl 2,400 mg TIDWM PO 07/21/25 08:00 07/21/25 17:28 2,400 MG Ipratropium [place] 0.5 mg Q4HWA [facility] 07/20/25 18:00 07/21/25 22:43 0.5 MG Albuterol 2.5 mg Q4HWA [facility] 07/20/25 18:00 07/21/25 22:43 2.5 MG Ceftriaxone Sodium 50 ml @ 100 mls/hr DAILY@09 IV 07/21/25 09:00 07/21/25 08:51 100 MLS/HR Metronidazole 100 ml @ 100 mls/hr Q8HR IV 07/21/25 14:00 07/22/25 06:10 100 MLS/HR Laboratory Results Laboratory Tests 07/21/25 05:27 07/22/25 07:15 Chemistry Test 07/22/25 07:15 Albumin 4.0 g/dL (3.2-4.8) Calcium Level 9.0 mg/dL (8.7-10.4) Total Protein 7.7 g/dL (5.7-8.2) LFT Test 07/22/25 07:15 Alanine Aminotransferase (ALT) 11 U/L (7-40) Alkaline Phosphatase 165 U/L (46-116) H Aspartate Amino Transferase (AST) 63 U/L (13-40) H Total Bilirubin 0.3 mg/dL (0.2-1.0) Microbiology Microbiology Date/Time Source Procedure Growth Status 07/20/25 09:09 Blood Blood Culture - Preliminary NO GROWTH AFTER 24 HOURS OF INCUBATION. Resulted Labs and/or images reviewed: Labs reviewed by me, Image(s) reviewed by me Assessment/Plan Assessment/Plan 70-year-old female with past medial history of diabetes, ESRD on HD M,W,F, COPD, home oxygen as needed, [place], hypothyroidism, and hyperlipidemia, who came to the hospital for abdominal pain. Patient is visiting family from out of state. She states last night she began experiencing left back pain. She thought it would go away. Then in the morning the pain worsened and was now in her back and left pelvic region. She was also becoming short of breath. She has home oxygen ordered that she uses as needed, but she does not travel with it due to the TSA regulations. Patient had scheduled PTCA after a positive stress test 3 weeks ago. She had 2 stents placed, making her have a total of 5 stents. Cardiovascular: HTN, [place], hyperipidemia, Other (PTCA with 5 stents) 07/21: Symptoms align with gastroenteritis. Patient had abdominal pain onset with significant diarrhea and nausea which are now improving. We will continue antibiotics. Continue dialysis for ESRD. The patient continues to improve tomorrow patient discharge. On 1 L oxygen 07/22: Overnight report possible bloody bowel movement? Melena. We will check CBC after dialysis today. Patient is still hypoxic, apparently uses home oxygen but developed traveled without oxygen as the airlines would not allow it. We will check oxygen and blood level after dialysis to see if patient is stable for discharge. If not we will keep patient admitted and continue further workup and treatment. Diagnosis: Acute hypoxic respiratory failure Aspiration pneumonitis possible Acute gastroenteritis, infectious etiology likely Hyperkalemia Hyperglycemia Pleural effusions Leukocytosis, possibly from missed dialysis diabetes ESRD on HD M,W,F COPD, home oxygen as needed [place] hypothyroidism hyperlipidemia Plan: IV antibiotics Consult resume dialysis patient Insulin sliding scale moderate a.c. HS Continue home medications Pepcid 20 IV b.i.d. Tele Full code Plan discussed with: Patient My Orders Orders - JOSE G ANGUIANO MD Procedure Category Date Status Time Metronidazole PHA 07/21/25 In Process 500mg/100ml (Flagyl 14:00 BIPAP RT 07/21/25 Logged 14:03 Stool Occult Blood LAB 07/22/25 Logged 09:04 Complete Blood Count LAB 07/22/25 Logged 09:04 Date of Service: Jul 22, 2025 Billing Provider: JOSE G ANGUIANO MD Common Visit Codes: [id number] INP/OBS CARE(HIGH) JOSE G ANGUIANO MD Jul 22, 2025 09:16
[2025-07-22 10:00] LABS: Hematocrit 38.9 % (36.0-46.0); Hemoglobin 12.1 g/dL (12.2-16.2); Mean Corpuscular Hemoglobin 25.3 pg (28.0-32.0); Mean Corpuscular Volume 81.1 fL (80.0-100.0); Nucleated Red Blood Cells % 0.3 %
[2025-07-22 16:41] LABS: Base Excess 3.4 mmol/L (-2.0-3.0)
--- NOTE | 2025-07-22 17:15 | DVHPN2 ---
Progress Note - Dictate Date Seen: Jul 22, 2025 Has the PT tested + for MRSA If YES, has PT been informed?: No Medical Necessity Reason Pt with a Central, PICC or Fol: No Subjective Feels better vital signs Vital Sign Date Time Temp Pulse Resp B/P (MAP) Pulse Ox O2 Delivery O2 Flow Rate FiO2 07/22/25 13:00 98.6 94 18 112/41 (64) 96 98.6 07/22/25 11:29 Nasal Cannula* 2 28 Total Intake and Output 07/21/25 07/21/25 07/22/25 15:00 23:00 07:00 Intake Total 50 ml 680 ml 800 ml Balance 50 ml 680 ml 800 ml medications Current Medications Medications Dose Ordered Sig/Amena Route Start Time Stop Time Status Last Admin Dose Admin Sodium Chloride 10 ml Q8HR IV 07/20/25 14:00 07/22/25 06:10 10 ML Acetaminophen/ Hydrocodone Bitart 1 tab Q4HP PRN PO 07/20/25 13:15 Docusate Sodium 100 mg BIDPRN PRN PO 07/20/25 13:15 Acetaminophen 650 mg Q6HP PRN PO 07/20/25 13:15 Nitroglycerin 0.4 mg Q5MINP PRN SL 07/20/25 13:15 Morphine Sulfate 2 mg Q30M PRN IV 07/20/25 13:15 Ondansetron HCl 4 mg Q4HP PRN IV 07/20/25 13:30 Diagnostic Test (Pha) 1 strip ACHS 07/20/25 17:00 07/22/25 14:19 1 STRIP Insulin Human Regular HS SC 07/20/25 22:00 07/21/25 21:35 6 UNITS Insulin Human Regular AC SC 07/20/25 17:00 07/22/25 06:18 2 UNITS Dextrose 50 ml UD PRN IV 07/20/25 15:00 Aspirin 81 mg DAILY PO 07/21/25 10:00 07/21/25 08:51 81 MG Clopidogrel Bisulfate 75 mg DAILY PO 07/21/25 10:00 07/21/25 08:52 75 MG Insulin Glargine 10 units DAILY SC 07/21/25 10:00 07/22/25 14:17 10 UNITS Levothyroxine Sodium 150 mcg DAILY PO 07/21/25 10:00 07/21/25 08:50 150 MCG Atorvastatin Calcium 20 mg HS PO 07/20/25 22:00 07/21/25 21:34 20 MG Sevelamer HCl 2,400 mg TIDWM PO 07/21/25 08:00 07/22/25 14:16 2,400 MG Ipratropium [place] 0.5 mg Q4HWA [facility] 07/20/25 18:00 07/22/25 11:29 0.5 MG Albuterol 2.5 mg Q4HWA [facility] 07/20/25 18:00 07/22/25 11:28 2.5 MG Ceftriaxone Sodium 50 ml @ 100 mls/hr DAILY@09 IV 07/21/25 09:00 07/22/25 09:00 100 MLS/HR Metronidazole 100 ml @ 100 mls/hr Q8HR IV 07/21/25 14:00 07/22/25 14:20 100 MLS/HR objective GENERAL: The patient is an elderly -Indonesian female, moderately obese, who seems to be chronically ill, in no acute distress. Alert and oriented x3. HEENT: Unremarkable. Oral mucosa is pale and dry. LUNGS: Clear to auscultation. CARDIOVASCULAR: Shows regular rate. No gallops. No murmurs. ABDOMEN: Soft, mildly distended. Bowel sounds are normal in intensity and frequency. No organomegaly. No ascites. No tenderness to palpation in any specific areas. EXTREMITIES: Showed no clubbing, cyanosis or edema. Her left arm has an AV fistula that is patent with 2 button holes. NEUROLOGIC: Nonfocal. laboratory and microbiology Laboratory Tests 07/22/25 07:15 Test 07/22/25 07:15 Range/Units Serum Glucose 137 H 74-106 mg/dL Assessment/Plan ASSESSMENT AND PLAN: * End-stage renal disease, mild uremic toxin build-up improved after HD yesterday * Mild hyperkalemia resolved * Anemia of renal disease, hemoglobin is stable. * Abdominal pain of unclear etiology. Imaging is negative, improved * Controlled hypertension. * Diabetic nephropathy. She could be discharged home today after HD so she can return home to [place] on . Plan discussed with: Patient ANDRIY CUMMINS MD Jul 22, 2025 17:15
[2025-07-23] VITALS (20 sets, daily range): BP systolic 118–174; BP diastolic 45–148; PULSE 90–101; RESP 16–20; TEMP 96.7–98.5; O2SAT 93–100
[2025-07-23] MEDS ORDERED: FLUT1AER3 IN (13:09)
[2025-07-24] VITALS (17 sets, daily range): BP systolic 100–174; BP diastolic 53–148; PULSE 78–103; RESP 16–22; TEMP 97.1–98.8; O2SAT 95–100
--- NOTE | 2025-07-24 11:08 | DVHDS2 ---
Discharge Summary Date of Admission Jul 20, 2025 at 13:01 Date of Discharge: Jul 23, 2025 Labs/Diagnostic Data: Laboratory Results Test 07/23/25 05:59 07/22/25 23:15 07/22/25 16:29 07/22/25 07:15 POC Glucose 133 mg/dl (70-106) Stool Occult Blood Negative (Negative) Stool Occult Blood Sample #3 (Negative) Blood Gas Specimen Type Arterial Blood Gas Sample Site Right radial Blood Gas Patient Temperature 37.0 Arterial Blood Date Drawn [id number] Arterial Blood pH 7.430 (7.350-7.450) Arterial Blood Partial Pressure CO2 43.4 mmHg (32.0-45.0) Arterial Blood Partial Pressure O2 42.1 mmHg (83.0-108.0) Arterial Blood HCO3 28.2 mmol/L (21.0-28.0) Arterial Blood Oxygen Saturation 76.4 % (94.0-98.0) Arterial Blood Base Excess 3.4 mmol/L (-2.0-3.0) Arterial Blood Oxyhemoglobin 75.3 % (94.0-98.0) Arterial Blood Carboxyhemoglobin 1.1 % (0.5-1.5) Arterial Blood Methemoglobin 0.4 % (0.0-1.5) Werner Test Yes Blood Gas Total Hemoglobin 12.20 g/dL (12.0-16.0) Blood Gas Modality Room air FiO2 % 21.0 Blood Gas Critical Value Read Back Yes Blood Gas Notified Whom merlin Espinosa Blood Gas Notified Time [id number] Blood Gas Notified By Rt cherrie alphonse White Blood Count 10.0 10^3/uL (4.4-10.8) Red Blood Count 4.80 10^6/uL (4.0-5.20) Hemoglobin 12.1 g/dL (12.2-16.2) Hematocrit 38.9 % (36.0-46.0) Mean Corpuscular Volume 81.1 fL (80.0-100.0) Mean Corpuscular Hemoglobin 25.3 pg (28.0-32.0) Mean Corpuscular Hemoglobin Concent 31.2 g/dL (32.0-36.0) Red Cell Distribution Width 17.2 % (11.8-14.3) Platelet Count 190 10^3/uL (140-450) Mean Platelet Volume 8.3 fL (6.9-10.8) Neutrophils (%) (Auto) 78.2 % (37.0-80.0) Lymphocytes (%) (Auto) 8.3 % (10.0-50.0) Monocytes (%) (Auto) 9.6 % (0.0-12.0) Eosinophils (%) (Auto) 3.4 % (0.0-7.0) Basophils (%) (Auto) 0.5 % (0.0-2.0) Neutrophils # (Auto) 7.8 10 ^3/uL (1.6-8.6) Lymphocytes # (Auto) 0.8 10 ^3/uL (0.4-5.4) Monocytes # (Auto) 1.0 10 ^3/uL (0-1.3) Eosinophils # (Auto) 0.3 10 ^3/uL (0-0.8) Basophils # (Auto) 0 10 ^3/uL (0-0.2) Nucleated Red Blood Cells 0.3 % Sodium Level 136 mmol/L (136-145) Potassium Level 4.9 mmol/L (3.5-5.1) Chloride Level 97 mmol/L (98-107) Carbon Dioxide Level 27 mmol/L (20-31) Anion Gap 12 (5-15) Blood Urea Nitrogen 34 mg/dL (9-23) Creatinine 10.50 mg/dL (0.550-1.02) Glomerular Filtration Rate Calc 4 mL/min (>90) BUN/Creatinine Ratio 3.2 (10.0-20.0) Serum Glucose 137 mg/dL (74-106) Calcium Level 9.0 mg/dL (8.7-10.4) Total Bilirubin 0.3 mg/dL (0.2-1.0) Aspartate Amino Transferase (AST) 63 U/L (13-40) Alanine Aminotransferase (ALT) 11 U/L (7-40) Alkaline Phosphatase 165 U/L (46-116) Total Protein 7.7 g/dL (5.7-8.2) Albumin 4.0 g/dL (3.2-4.8) Test 07/20/25 14:37 07/20/25 12:00 07/20/25 09:09 Hepatitis B Surface Antigen Negative (Negative) Troponin I High Sensitivity 40 ng/L (</=34) Lactic Acid Level 1.1 mmol/L (0.4-2.0) Lipase 37 U/L (12-53) Other Laboratory Tests 07/22/25 07:15 Brief Hx & Hospital Course: 70-year-old female with past medial history of diabetes, ESRD on HD M,W,F, COPD, home oxygen as needed, [place], hypothyroidism, and hyperlipidemia, who came to the hospital for abdominal pain. Patient is visiting family from out of state. She states last night she began experiencing left back pain. She thought it would go away. Then in the morning the pain worsened and was now in her back and left pelvic region. She was also becoming short of breath. She has home oxygen ordered that she uses as needed, but she does not travel with it due to the TSA regulations. Patient had scheduled PTCA after a positive stress test 3 weeks ago. She had 2 stents placed, making her have a total of 5 stents. Cardiovascular: HTN, [place], hyperipidemia, Other (PTCA with 5 stents) 07/21: Symptoms align with gastroenteritis. Patient had abdominal pain onset with significant diarrhea and nausea which are now improving. We will continue antibiotics. Continue dialysis for ESRD. The patient continues to improve tomorrow patient discharge. On 1 L oxygen 07/22: Overnight report possible bloody bowel movement? Melena. We will check CBC after dialysis today. Patient is still hypoxic, apparently uses home oxygen but developed traveled without oxygen as the airlines would not allow it. We will check oxygen and blood level after dialysis to see if patient is stable for discharge. If not we will keep patient admitted and continue further workup and treatment. 07/23: Patient appears more euvolemic. Needs to continue dialysis schedule Sunday. Qualifies for oxygen as per room air ABG yesterday, social order for oxygen has been fixed. Social to coordinate with to acquire portable oxygen concentrator for home. Defer transportation actions in terms of notifying airlines for the portable oxygen concentrator and incompatibility with the airlines, defer that to patient's family/has been. Otherwise vital signs stable, remains stable on 2 L oxygen nasal cannula, stable for discharge as per plan below. Diagnosis: Acute hypoxic respiratory failure, due to missed dialysis Acute gastroenteritis, infectious etiology likely volume overload due to missed dialysis Hyperkalemia Hyperglycemia Pleural effusions Leukocytosis, possibly from missed dialysis diabetes ESRD on HD M,W,F COPD, home oxygen as needed [place] hypothyroidism hyperlipidemia Discharge plan: - continue home oxygen 2 L nasal cannula continuous - Continue strict compliance with ESRD schedule Sunday - continue other home medications - follow up with PCP to review discharge. Condition at Discharge: Fair Final Diagnosis/Problems List Acute hypoxic respiratory failure, due to missed dialysis Acute gastroenteritis, infectious etiology likely volume overload due to missed dialysis Hyperkalemia Hyperglycemia Pleural effusions Leukocytosis, possibly from missed dialysis diabetes ESRD on HD M,W,F COPD, home oxygen as needed [place] hypothyroidism hyperlipidemia Discharge Disposition: Home Discharge Instruct/Medications Scheduled Aspirin (Aspir-81), 1 TAB PO DAILY, (Reported) Clopidogrel Bisulfate (Plavix), 1 TAB PO DAILY, (Reported) Insulin Glargine (Lantus), 10 UNIT SC DAILY, (Reported) Levothyroxine Sodium (Levothyroxine Sodium), 1 TAB PO DAILY, (Reported) Rosuvastatin Calcium (Rosuvastatin Calcium), 10 MG PO HS, (Reported) Sevelamer Carbonate (Sevelamer Carbonate), 2,400 MG PO TIDWM, (Reported) Miscellaneous Medications Rnmbynjlriq-Jorrtjgaanoq-Cojji (Trelegy Ellipta 100-62.5-25 Mcg/INH), 1 AER [place], (Reported) Discharge Statement: "Patient was advised to return to the ER or call 911 if any headaches, dizziness, shortness of breath, chest pain, abdominal pain, bleeding, fevers, or worsening of medical condition. Patient was counseled about treatment plan, medications, possible side effects, patientverbalized understanding. All questions were answered to the best of my ability. This discharge took greater then 30 minutes in planning, reviewing documentation, counseling the patient, and discussing with other team members." ASSESSMENT ASSESSMENT Assessment Date of Service: Jul 23, 2025 Billing Provider: JOSE G ANGUIANO MD Common Visit Codes: [id number] DISCH DAY >30min JOSE G ANGUIANO MD Jul 23, 2025 11:10
--- NOTE | 2025-07-24 11:13 | DVHPN2 ---
Progress Note - Dictate Date Seen: Jul 23, 2025 Has the PT tested + for MRSA If YES, has PT been informed?: No Medical Necessity Reason Pt with a Central, PICC or Fol: No Subjective Feels better vital signs Vital Sign Date Time Temp Pulse Resp B/P (MAP) Pulse Ox O2 Delivery O2 Flow Rate FiO2 07/23/25 12:50 96.8 97 19 118/54 (75) 98 96.8 07/23/25 09:57 Nasal Cannula 2.0 07/23/25 09:57 28 Total Intake and Output 07/22/25 07/22/25 07/23/25 15:00 23:00 07:00 Intake Total 50 ml 580 ml 400 ml Balance 50 ml 580 ml 400 ml medications Current Medications Medications Dose Ordered Sig/Amena Route Start Time Stop Time Status Last Admin Dose Admin Sodium Chloride 10 ml Q8HR IV 07/20/25 14:00 07/23/25 05:48 10 ML Acetaminophen/ Hydrocodone Bitart 1 tab Q4HP PRN PO 07/20/25 13:15 Docusate Sodium 100 mg BIDPRN PRN PO 07/20/25 13:15 Acetaminophen 650 mg Q6HP PRN PO 07/20/25 13:15 Nitroglycerin 0.4 mg Q5MINP PRN SL 07/20/25 13:15 Morphine Sulfate 2 mg Q30M PRN IV 07/20/25 13:15 Ondansetron HCl 4 mg Q4HP PRN IV 07/20/25 13:30 Diagnostic Test (Pha) 1 strip ACHS 07/20/25 17:00 07/23/25 11:27 1 STRIP Insulin Human Regular HS SC 07/20/25 22:00 07/21/25 21:35 6 UNITS Insulin Human Regular AC SC 07/20/25 17:00 07/23/25 12:04 6 UNITS Dextrose 50 ml UD PRN IV 07/20/25 15:00 Aspirin 81 mg DAILY PO 07/21/25 10:00 07/23/25 09:58 81 MG Clopidogrel Bisulfate 75 mg DAILY PO 07/21/25 10:00 07/23/25 09:59 75 MG Insulin Glargine 10 units DAILY SC 07/21/25 10:00 07/23/25 12:04 10 UNITS Levothyroxine Sodium 150 mcg DAILY PO 07/21/25 10:00 07/23/25 09:59 150 MCG Atorvastatin Calcium 20 mg HS PO 07/20/25 22:00 07/22/25 22:13 20 MG Sevelamer HCl 2,400 mg TIDWM PO 07/21/25 08:00 07/23/25 12:04 2,400 MG Ipratropium [place] 0.5 mg Q4HWA [facility] 07/20/25 18:00 07/23/25 09:57 0.5 MG Albuterol 2.5 mg Q4HWA [facility] 07/20/25 18:00 07/23/25 09:57 2.5 MG Ceftriaxone Sodium 50 ml @ 100 mls/hr DAILY@09 IV 07/21/25 09:00 07/23/25 08:51 100 MLS/HR Metronidazole 100 ml @ 100 mls/hr Q8HR IV 07/21/25 14:00 07/23/25 05:51 100 MLS/HR objective GENERAL: The patient is an elderly -Cym[place] female, moderately obese, who seems to be chronically ill, in no acute distress. Alert and oriented x3. HEENT: Unremarkable. Oral mucosa is pale and dry. LUNGS: Clear to auscultation. CARDIOVASCULAR: Shows regular rate. No gallops. No murmurs. ABDOMEN: Soft, mildly distended. Bowel sounds are normal in intensity and frequency. No organomegaly. No ascites. No tenderness to palpation in any specific areas. EXTREMITIES: Showed no clubbing, cyanosis or edema. Her left arm has an AV fistula that is patent with 2 button holes. NEUROLOGIC: Nonfocal. laboratory and microbiology Laboratory Tests 07/22/25 07:15 Test 07/22/25 07:15 Range/Units Serum Glucose 137 H 74-106 mg/dL Assessment/Plan ASSESSMENT AND PLAN: * End-stage renal disease, mild uremic toxin build-up improved after HD yesterday * Mild hyperkalemia resolved * Anemia of renal disease, hemoglobin is stable. * Abdominal pain of unclear etiology. Imaging is negative, improved * Controlled hypertension. * Diabetic nephropathy. She has been cleared for dc home since yesterday . Dietary Evaluation Review Comments: Check lipid profile, CCHO-60 Renal standard diet Weight management upon D/C Expected Outcomes/Goals: controlled serun glucose, gradual weight loss Plan discussed with: Patient ANDRIY CUMMINS MD Jul 23, 2025 13:13
--- NOTE | 2025-07-24 13:44 | DVHPN2 ---
Progress Note - Dictate Date Seen: Jul 24, 2025 Has the PT tested + for MRSA If YES, has PT been informed?: No Medical Necessity Reason Pt with a Central, PICC or Fol: No Subjective No complaints vital signs Vital Sign Date Time Temp Pulse Resp B/P (MAP) Pulse Ox O2 Delivery O2 Flow Rate FiO2 07/24/25 12:35 97.1 93 18 100/82 (88) 97 97.1 07/24/25 08:00 Nasal Cannula* 2 28 Total Intake and Output 07/23/25 07/23/25 07/24/25 15:00 23:00 07:00 Intake Total 300 ml 200 ml Balance 300 ml 200 ml medications Current Medications Medications Dose Ordered Sig/Amena Route Start Time Stop Time Status Last Admin Dose Admin Sodium Chloride 10 ml Q8HR IV 07/20/25 14:00 07/24/25 13:42 10 ML Acetaminophen/ Hydrocodone Bitart 1 tab Q4HP PRN PO 07/20/25 13:15 Docusate Sodium 100 mg BIDPRN PRN PO 07/20/25 13:15 Acetaminophen 650 mg Q6HP PRN PO 07/20/25 13:15 Nitroglycerin 0.4 mg Q5MINP PRN SL 07/20/25 13:15 Morphine Sulfate 2 mg Q30M PRN IV 07/20/25 13:15 Ondansetron HCl 4 mg Q4HP PRN IV 07/20/25 13:30 Diagnostic Test (Pha) 1 strip ACHS 07/20/25 17:00 07/24/25 11:30 1 STRIP Insulin Human Regular HS SC 07/20/25 22:00 07/21/25 21:35 6 UNITS Insulin Human Regular AC SC 07/20/25 17:00 07/24/25 11:30 2 UNITS Dextrose 50 ml UD PRN IV 07/20/25 15:00 Aspirin 81 mg DAILY PO 07/21/25 10:00 07/24/25 09:27 81 MG Clopidogrel Bisulfate 75 mg DAILY PO 07/21/25 10:00 07/24/25 09:27 75 MG Insulin Glargine 10 units DAILY SC 07/21/25 10:00 07/23/25 12:04 10 UNITS Levothyroxine Sodium 150 mcg DAILY PO 07/21/25 10:00 07/23/25 09:59 150 MCG Atorvastatin Calcium 20 mg HS PO 07/20/25 22:00 07/23/25 21:20 20 MG Sevelamer HCl 2,400 mg TIDWM PO 07/21/25 08:00 07/24/25 12:44 2,400 MG Ipratropium [place] 0.5 mg Q4HWA [facility] 07/20/25 18:00 07/24/25 06:59 0.5 MG Albuterol 2.5 mg Q4HWA [facility] 07/20/25 18:00 07/24/25 06:59 2.5 MG Ceftriaxone Sodium 50 ml @ 100 mls/hr DAILY@09 IV 07/21/25 09:00 07/24/25 08:53 100 MLS/HR Metronidazole 100 ml @ 100 mls/hr Q8HR IV 07/21/25 14:00 07/24/25 13:42 100 MLS/HR objective GENERAL: The patient is an elderly -Slovenian female, moderately obese, who seems to be chronically ill, in no acute distress. Alert and oriented x3. HEENT: Unremarkable. Oral mucosa is pale and dry. LUNGS: Clear to auscultation. CARDIOVASCULAR: Shows regular rate. No gallops. No murmurs. ABDOMEN: Soft, mildly distended. Bowel sounds are normal in intensity and frequency. No organomegaly. No ascites. No tenderness to palpation in any specific areas. EXTREMITIES: Showed no clubbing, cyanosis or edema. Her left arm has an AV fistula that is patent with 2 button holes. NEUROLOGIC: Nonfocal. laboratory and microbiology Laboratory Tests 07/22/25 07:15 Test 07/22/25 07:15 Range/Units Serum Glucose 137 H 74-106 mg/dL Assessment/Plan ASSESSMENT AND PLAN: * End-stage renal disease, Had HD again today * Anemia of renal disease, hemoglobin is stable. * Abdominal pain of unclear etiology. Imaging is negative, improved * Controlled hypertension. * Diabetic nephropathy. PLEASE SEND HER HOME . Dietary Evaluation Review Comments: Check lipid profile, CCHO-60 Renal standard diet Weight management upon D/C Expected Outcomes/Goals: controlled serun glucose, gradual weight loss Plan discussed with: Other ANDRIY CUMMINS MD Jul 24, 2025 13:44
--- NOTE | 2025-07-24 14:09 | DVHPN2 ---
Reviewed: H&P Changes from previous H/P or p: No Changes General: Per HPI Eyes: No Pain, No Vision change, No Conjunctivae inflammation, No Eyelid inflammation, No Other, No Redness ENT: No Ear pain, No Ear discharge, No Nose pain, No Nose discharge, No Nose congestion, No Mouth pain, No Mouth swelling, No Throat pain, No Throat swelling, No Other Cardiovascular: No Chest Pain, No Palpitations, No Orthopnea, No Paroxysmal Noc. Dyspnea, No Edema, No Lt Headedness, No Other Respiratory: Cough; No Dry; Shortness of breath; No SOB with excertion; W heezing; No Hemoptysis, No Pleuritic Pain, No Sputum, No Other Gastrointestinal: No Nausea, No Vomiting; Abdominal Pain; No Diarrhea, No Constipation, No Melena, No Hematochezia, No Other Genitourinary: No Dysuria, No Frequency, No Incontinence, No Hematuria, No Retention, No Other Musculoskeletal: No other, No neck pain, No shoulder pain, No arm pain; back pain; No hand pain, No leg pain, No foot pain Skin: No Rash, No Lesions, No Jaundice, No Bruising, No Other Objective Vitals Vital Signs Date Time Temp Pulse Resp B/P (MAP) Pulse Ox O2 Delivery O2 Flow Rate FiO2 07/24/25 12:35 97.1 93 18 100/82 (88) 97 97.1 07/24/25 08:00 Nasal Cannula* 2 28 Intake/Output Intake and Output 07/24/25 07:00 Intake Total 500 ml Balance 500 ml Intake Oral 500 ml # Voids 2 # Bowel Movements 1 Exam GEN: Healthy appearing, well-developed, NAD. HEENT: NC/AT; MMM. CV: RRR, no m/r/g. LUNGS: CTAB, no w/r/c. ABD: Hypoactive bowel sounds all melchor, mild tender to left flank and epigastrium. EXT: skin Warm, well perfused. no rashes. No clubbing, cyanosis, or edema. NEURO: Ambulating with no limitations. No focal deficits. Medications Current Medications Medications Dose Ordered Sig/Amena Route Start Time Stop Time Status Last Admin Dose Admin Sodium Chloride 10 ml Q8HR IV 07/20/25 14:00 07/24/25 13:42 10 ML Acetaminophen/ Hydrocodone Bitart 1 tab Q4HP PRN PO 07/20/25 13:15 Docusate Sodium 100 mg BIDPRN PRN PO 07/20/25 13:15 Acetaminophen 650 mg Q6HP PRN PO 07/20/25 13:15 Nitroglycerin 0.4 mg Q5MINP PRN SL 07/20/25 13:15 Morphine Sulfate 2 mg Q30M PRN IV 07/20/25 13:15 Ondansetron HCl 4 mg Q4HP PRN IV 07/20/25 13:30 Diagnostic Test (Pha) 1 strip ACHS 07/20/25 17:00 07/24/25 11:30 1 STRIP Insulin Human Regular HS SC 07/20/25 22:00 07/21/25 21:35 6 UNITS Insulin Human Regular AC SC 07/20/25 17:00 07/24/25 11:30 2 UNITS Dextrose 50 ml UD PRN IV 07/20/25 15:00 Aspirin 81 mg DAILY PO 07/21/25 10:00 07/24/25 09:27 81 MG Clopidogrel Bisulfate 75 mg DAILY PO 07/21/25 10:00 07/24/25 09:27 75 MG Insulin Glargine 10 units DAILY SC 07/21/25 10:00 07/23/25 12:04 10 UNITS Levothyroxine Sodium 150 mcg DAILY PO 07/21/25 10:00 07/23/25 09:59 150 MCG Atorvastatin Calcium 20 mg HS PO 07/20/25 22:00 07/23/25 21:20 20 MG Sevelamer HCl 2,400 mg TIDWM PO 07/21/25 08:00 07/24/25 12:44 2,400 MG Ipratropium [place] 0.5 mg Q4HWA [facility] 07/20/25 18:00 07/24/25 06:59 0.5 MG Albuterol 2.5 mg Q4HWA [facility] 07/20/25 18:00 07/24/25 06:59 2.5 MG Ceftriaxone Sodium 50 ml @ 100 mls/hr DAILY@09 IV 07/21/25 09:00 07/24/25 08:53 100 MLS/HR Metronidazole 100 ml @ 100 mls/hr Q8HR IV 07/21/25 14:00 07/24/25 13:42 100 MLS/HR Laboratory Results Laboratory Tests 07/22/25 07:15 Microbiology Microbiology Date/Time Source Procedure Growth Status 07/20/25 09:09 Blood Blood Culture - Preliminary NO GROWTH AFTER 72 HOURS OF INCUBATION. Resulted Labs and/or images reviewed: Labs reviewed by me, Image(s) reviewed by me Assessment/Plan Assessment/Plan 70-year-old female with past medial history of diabetes, ESRD on HD M,W,F, COPD, home oxygen as needed, [place], hypothyroidism, and hyperlipidemia, who came to the hospital for abdominal pain. Patient is visiting family from out of state. She states last night she began experiencing left back pain. She thought it would go away. Then in the morning the pain worsened and was now in her back and left pelvic region. She was also becoming short of breath. She has home oxygen ordered that she uses as needed, but she does not travel with it due to the TSA regulations. Patient had scheduled PTCA after a positive stress test 3 weeks ago. She had 2 stents placed, making her have a total of 5 stents. Cardiovascular: HTN, VT, hyperipidemia, Other (PTCA with 5 stents) 07/21: Symptoms align with gastroenteritis. Patient had abdominal pain onset with significant diarrhea and nausea which are now improving. We will continue antibiotics. Continue dialysis for ESRD. The patient continues to improve tomorrow patient discharge. On 1 L oxygen 07/22: Overnight report possible bloody bowel movement? Melena. We will check CBC after dialysis today. Patient is still hypoxic, apparently uses home oxygen but developed traveled without oxygen as the airlines would not allow it. We will check oxygen and blood level after dialysis to see if patient is stable for discharge. If not we will keep patient admitted and continue further workup and treatment. 07/23: Patient discharge see DC summary from 07/23/202507/24: Patient is still waiting for oxygen delivery, discharge done yesterday, patient can be discharged as soon as oxygen POC is delivered at bedside. Continue ESRD HD schedule until oxygen been delivered. Diagnosis: Acute hypoxic respiratory failure Aspiration pneumonitis possible Acute gastroenteritis, infectious etiology likely Hyperkalemia Hyperglycemia Pleural effusions Leukocytosis, possibly from missed dialysis diabetes ESRD on HD M,W,F COPD, home oxygen as needed [place] hypothyroidism hyperlipidemia Plan: IV antibiotics Consult resume dialysis patient Insulin sliding scale moderate a.c. HS Continue home medications Pepcid 20 IV b.i.d. Tele Full code Plan discussed with: Patient My Orders Orders - JOSE G ANGUIANO MD Procedure Category Date Status Time Discharge DISCHARGE 07/23/25 Transmitted 14:59 Date of Service: Jul 24, 2025 Billing Provider: JOSE G ANGUIANO MD Common Visit Codes: [id number] INP/OBS CARE(MOD) JOSE G ANGUIANO MD Jul 24, 2025 14:09
[2025-07-25] VITALS (18 sets, daily range): BP systolic 119–150; BP diastolic 51–95; PULSE 74–104; RESP 16–20; TEMP 97.2–98.6; O2SAT 94–100
[2025-07-25] MEDS: ACETAMINOPHEN 325 MG TAB PO PRN (00:56)
[2025-07-25] MEDS: HYDROcodone-ACET 5/325MG TAB PO PRN (06:47)
--- NOTE | 2025-07-25 10:23 | DVHPN2 ---
Progress Note - Dictate Date Seen: Jul 25, 2025 Has the PT tested + for MRSA If YES, has PT been informed?: No Medical Necessity Reason Pt with a Central, PICC or Fol: No Subjective No complaints vital signs Vital Sign Date Time Temp Pulse Resp B/P (MAP) Pulse Ox O2 Delivery O2 Flow Rate FiO2 07/25/25 09:26 90 18 100 07/25/25 09:20 Nasal Cannula* 3 32 07/25/25 09:00 97.7 119/71 (87) 97.7 Total Intake and Output 07/24/25 07/24/25 07/25/25 15:00 23:00 07:00 Intake Total 650 ml 275 ml Balance 650 ml 275 ml medications Current Medications Medications Dose Ordered Sig/Amena Route Start Time Stop Time Status Last Admin Dose Admin Sodium Chloride 10 ml Q8HR IV 07/20/25 14:00 07/25/25 06:24 10 ML Acetaminophen/ Hydrocodone Bitart 1 tab Q4HP PRN PO 07/20/25 13:15 07/25/25 06:47 1 TAB Docusate Sodium 100 mg BIDPRN PRN PO 07/20/25 13:15 Acetaminophen 650 mg Q6HP PRN PO 07/20/25 13:15 07/25/25 00:56 650 MG Nitroglycerin 0.4 mg Q5MINP PRN SL 07/20/25 13:15 Morphine Sulfate 2 mg Q30M PRN IV 07/20/25 13:15 Ondansetron HCl 4 mg Q4HP PRN IV 07/20/25 13:30 Diagnostic Test (Pha) 1 strip ACHS 07/20/25 17:00 07/25/25 06:26 1 STRIP Insulin Human Regular HS SC 07/20/25 22:00 07/21/25 21:35 6 UNITS Insulin Human Regular AC SC 07/20/25 17:00 07/25/25 06:25 2 UNITS Dextrose 50 ml UD PRN IV 07/20/25 15:00 Aspirin 81 mg DAILY PO 07/21/25 10:00 07/24/25 09:27 81 MG Clopidogrel Bisulfate 75 mg DAILY PO 07/21/25 10:00 07/24/25 09:27 75 MG Insulin Glargine 10 units DAILY SC 07/21/25 10:00 07/23/25 12:04 10 UNITS Atorvastatin Calcium 20 mg HS PO 10/27/25 22:00 07/24/25 21:20 20 MG Sevelamer HCl 2,400 mg TIDWM PO 07/21/25 08:00 07/24/25 17:49 2,400 MG Ipratropium [place] 0.5 mg Q4HWA [facility] 07/20/25 18:00 07/25/25 09:20 0.5 MG Albuterol 2.5 mg Q4HWA [facility] 07/20/25 18:00 07/25/25 09:20 2.5 MG Ceftriaxone Sodium 50 ml @ 100 mls/hr DAILY@09 IV 07/21/25 09:00 07/24/25 08:53 100 MLS/HR Metronidazole 100 ml @ 100 mls/hr Q8HR IV 07/21/25 14:00 07/25/25 06:24 100 MLS/HR Levothyroxine Sodium 150 mcg DAILY@0600 PO 07/26/25 06:15 objective GENERAL: The patient is an elderly -[place] female, moderately obese, who seems to be chronically ill, in no acute distress. Alert and oriented x3. HEENT: Unremarkable. Oral mucosa is pale and dry. LUNGS: Clear to auscultation. CARDIOVASCULAR: Shows regular rate. No gallops. No murmurs. ABDOMEN: Soft, mildly distended. Bowel sounds are normal in intensity and frequency. No organomegaly. No ascites. No tenderness to palpation in any specific areas. EXTREMITIES: Showed no clubbing, cyanosis or edema. Her left arm has an AV fistula that is patent with 2 button holes. NEUROLOGIC: Nonfocal. laboratory and microbiology Laboratory Tests 07/22/25 07:15 Test 07/22/25 07:15 Range/Units Serum Glucose 137 H 74-106 mg/dL Assessment/Plan ASSESSMENT AND PLAN: * End-stage renal disease, stable * Anemia of renal disease, hemoglobin is stable. * Abdominal pain of unclear etiology. Imaging is negative, improved * Controlled hypertension. * Diabetic nephropathy. PLEASE SEND HER HOME . Dietary Evaluation Review Comments: Check lipid profile, CCHO-60 Renal standard diet Weight management upon D/C Expected Outcomes/Goals: controlled serun glucose, gradual weight loss Plan discussed with: Other NADRIY CUMMINS MD Jul 25, 2025 10:23
--- NOTE | 2025-07-25 19:22 | DVHPN2 ---
Subjective In bed resting Reviewed: H&P Changes from previous H/P or p: No Changes General: Per HPI Eyes: No Pain, No Vision change, No Conjunctivae inflammation, No Eyelid inflammation, No Other, No Redness ENT: No Ear pain, No Ear discharge, No Nose pain, No Nose discharge, No Nose congestion, No Mouth pain, No Mouth swelling, No Throat pain, No Throat swelling, No Other Cardiovascular: No Chest Pain, No Palpitations, No Orthopnea, No Paroxysmal Noc. Dyspnea, No Edema, No Lt Headedness, No Other Respiratory: Cough; No Dry; Shortness of breath; No SOB with excertion; W heezing; No Hemoptysis, No Pleuritic Pain, No Sputum, No Other Gastrointestinal: No Nausea, No Vomiting; Abdominal Pain; No Diarrhea, No Constipation, No Melena, No Hematochezia, No Other Genitourinary: No Dysuria, No Frequency, No Incontinence, No Hematuria, No Retention, No Other Musculoskeletal: No other, No neck pain, No shoulder pain, No arm pain; back pain; No hand pain, No leg pain, No foot pain Skin: No Rash, No Lesions, No Jaundice, No Bruising, No Other Objective Vitals Vital Signs Date Time Temp Pulse Resp B/P (MAP) Pulse Ox O2 Delivery O2 Flow Rate FiO2 07/25/25 17:00 98.0 90 18 139/55 (83) 100 98.0 07/25/25 13:58 Nasal Cannula 3.0 07/25/25 13:58 32 Intake/Output Intake and Output 07/25/25 05:00 Intake Total 925 ml Balance 925 ml Intake Oral 825 ml IV Total 100 ml # Voids 1 # Bowel Movements 1 General Appearance: Alert, Oriented X3 HEENT: Atraumatic Lungs: Clear to auscultation Cardiovascular: Regular rate, Normal S1, Normal S2 Medications Current Medications Medications Dose Ordered Sig/Amena Route Start Time Stop Time Status Last Admin Dose Admin Sodium Chloride 10 ml Q8HR IV 07/20/25 14:00 07/25/25 13:58 10 ML Acetaminophen/ Hydrocodone Bitart 1 tab Q4HP PRN PO 07/20/25 13:15 07/25/25 06:47 1 TAB Docusate Sodium 100 mg BIDPRN PRN PO 07/20/25 13:15 Acetaminophen 650 mg Q6HP PRN PO 07/20/25 13:15 07/25/25 00:56 650 MG Nitroglycerin 0.4 mg Q5MINP PRN SL 07/20/25 13:15 Morphine Sulfate 2 mg Q30M PRN IV 07/20/25 13:15 Ondansetron HCl 4 mg Q4HP PRN IV 07/20/25 13:30 Diagnostic Test (Pha) 1 strip ACHS 07/20/25 17:00 07/25/25 17:26 1 STRIP Insulin Human Regular HS SC 07/20/25 22:00 07/21/25 21:35 6 UNITS Insulin Human Regular AC SC 07/20/25 17:00 07/25/25 17:31 2 UNITS Dextrose 50 ml UD PRN IV 07/20/25 15:00 Aspirin 81 mg DAILY PO 07/21/25 10:00 07/25/25 10:22 81 MG Clopidogrel Bisulfate 75 mg DAILY PO 07/21/25 10:00 07/25/25 10:22 75 MG Insulin Glargine 10 units DAILY SC 07/21/25 10:00 07/25/25 10:30 10 UNITS Atorvastatin Calcium 20 mg HS PO 07/20/25 22:00 07/24/25 21:20 20 MG Sevelamer HCl 2,400 mg TIDWM PO 07/21/25 08:00 07/25/25 17:28 2,400 MG Ipratropium [place] 0.5 mg Q4HWA [facility] 07/20/25 18:00 07/25/25 13:58 0.5 MG Albuterol 2.5 mg Q4HWA [facility] 07/20/25 18:00 07/25/25 13:58 2.5 MG Ceftriaxone Sodium 50 ml @ 100 mls/hr DAILY@09 IV 07/21/25 09:00 07/25/25 10:21 100 MLS/HR Metronidazole 100 ml @ 100 mls/hr Q8HR IV 07/21/25 14:00 07/25/25 13:57 100 MLS/HR Levothyroxine Sodium 150 mcg DAILY@0600 PO 07/26/25 06:15 Laboratory Results Laboratory Tests 07/22/25 07:15 Microbiology Microbiology Date/Time Source Procedure Growth Status 07/20/25 09:09 Blood Blood Culture - Final NO GROWTH AFTER 5 DAYS OF INCUBATION. Complete Assessment/Plan Assessment/Plan 70-year-old female with past medial history of diabetes, ESRD on HD M,W,F, COPD, home oxygen as needed, PR, hypothyroidism, and hyperlipidemia, who came to the hospital for abdominal pain. Patient is visiting family from out of state. She states last night she began experiencing left back pain. She thought it would go away. Then in the morning the pain worsened and was now in her back and left pelvic region. She was also becoming short of breath. She has home oxygen ordered that she uses as needed, but she does not travel with it due to the TSA regulations. Patient had scheduled PTCA after a positive stress test 3 weeks ago. She had 2 stents placed, making her have a total of 5 stents. Cardiovascular: HTN, PR, hyperipidemia, Other (PTCA with 5 stents) 07/21: Symptoms align with gastroenteritis. Patient had abdominal pain onset with significant diarrhea and nausea which are now improving. We will continue antibiotics. Continue dialysis for ESRD. The patient continues to improve tomorrow patient discharge. On 1 L oxygen 07/22: Overnight report possible bloody bowel movement? Melena. We will check CBC after dialysis today. Patient is still hypoxic, apparently uses home oxygen but developed traveled without oxygen as the airlines would not allow it. We will check oxygen and blood level after dialysis to see if patient is stable for discharge. If not we will keep patient admitted and continue further workup and treatment. 07/23: Patient discharge see DC summary from 07/23/202507/24: Patient is still waiting for oxygen delivery, discharge done yesterday, patient can be discharged as soon as oxygen POC is delivered at bedside. Continue ESRD HD schedule until oxygen been delivered. 07/25: Comfortable in bed, waiting on oxygen Diagnosis: Acute hypoxic respiratory failure Aspiration pneumonitis possible Acute gastroenteritis, infectious etiology likely Hyperkalemia Hyperglycemia Pleural effusions Leukocytosis, possibly from missed dialysis diabetes ESRD on HD M,W,F COPD, home oxygen as needed PR hypothyroidism hyperlipidemia Plan: IV antibiotics Consult resume dialysis patient Insulin sliding scale moderate a.c. HS Continue home medications Pepcid 20 IV b.i.d. Tele Full code Plan discussed with: Patient Date of Service: Jul 25, 2025 Billing Provider: GARUANG AMOR MD Common Visit Codes: [id number] INP/OBS CARE(HIGH) GAURANG AMOR MD Jul 25, 2025 19:22
[2025-07-26] VITALS (16 sets, daily range): BP systolic 115–159; BP diastolic 56–85; PULSE 84–100; RESP 14–20; TEMP 96.5–98.2; O2SAT 93–100
[2025-07-26] MEDS: LEVOTHYROXINE SODIUM 50 MCG TAB PO SCH (06:22)
--- NOTE | 2025-07-26 12:37 | DVHPN2 ---
Progress Note - Dictate Date Seen: Jul 26, 2025 Has the PT tested + for MRSA If YES, has PT been informed?: No Medical Necessity Reason Pt with a Central, PICC or Fol: No Subjective No complaints vital signs Vital Sign Date Time Temp Pulse Resp B/P (MAP) Pulse Ox O2 Delivery O2 Flow Rate FiO2 07/26/25 10:22 94 14 99 07/26/25 08:48 97.6 138/75 (96) 97.6 07/26/25 08:00 Nasal Cannula* 2 28 Total Intake and Output 07/25/25 07/25/25 07/26/25 15:00 23:00 07:00 Intake Total 300 ml 200 ml Balance 300 ml 200 ml medications Current Medications Medications Dose Ordered Sig/Amena Route Start Time Stop Time Status Last Admin Dose Admin Sodium Chloride 10 ml Q8HR IV 07/20/25 14:00 07/26/25 06:00 10 ML Acetaminophen/ Hydrocodone Bitart 1 tab Q4HP PRN PO 07/20/25 13:15 07/25/25 06:47 1 TAB Docusate Sodium 100 mg BIDPRN PRN PO 07/20/25 13:15 Acetaminophen 650 mg Q6HP PRN PO 07/20/25 13:15 07/25/25 00:56 650 MG Nitroglycerin 0.4 mg Q5MINP PRN SL 07/20/25 13:15 Morphine Sulfate 2 mg Q30M PRN IV 07/20/25 13:15 Ondansetron HCl 4 mg Q4HP PRN IV 07/20/25 13:30 Diagnostic Test (Pha) 1 strip ACHS 07/20/25 17:00 07/26/25 11:30 1 STRIP Insulin Human Regular HS SC 07/20/25 22:00 07/25/25 21:47 3 UNITS Insulin Human Regular AC SC 07/20/25 17:00 07/26/25 11:30 6 UNITS Dextrose 50 ml UD PRN IV 07/20/25 15:00 Aspirin 81 mg DAILY PO 07/21/25 10:00 07/26/25 09:09 81 MG Clopidogrel Bisulfate 75 mg DAILY PO 07/21/25 10:00 07/26/25 09:09 75 MG Insulin Glargine 10 units DAILY SC 07/21/25 10:00 07/26/25 10:00 10 UNITS Atorvastatin Calcium 20 mg HS PO 10/27/25 22:00 07/25/25 21:46 20 MG Sevelamer HCl 2,400 mg TIDWM PO 07/21/25 08:00 07/26/25 12:06 2,400 MG Ipratropium [place] 0.5 mg Q4HWA [facility] 07/20/25 18:00 07/26/25 10:15 0.5 MG Albuterol 2.5 mg Q4HWA [facility] 07/20/25 18:00 07/26/25 10:15 2.5 MG Ceftriaxone Sodium 50 ml @ 100 mls/hr DAILY@09 IV 07/21/25 09:00 07/26/25 09:08 100 MLS/HR Metronidazole 100 ml @ 100 mls/hr Q8HR IV 07/21/25 14:00 07/26/25 06:21 100 MLS/HR Levothyroxine Sodium 150 mcg DAILY@0600 PO 07/26/25 06:15 07/26/25 06:22 150 MCG objective GENERAL: The patient is an elderly -[place] female, moderately obese, who seems to be chronically ill, in no acute distress. Alert and oriented x3. HEENT: Unremarkable. Oral mucosa is pale and dry. LUNGS: Clear to auscultation. CARDIOVASCULAR: Shows regular rate. No gallops. No murmurs. ABDOMEN: Soft, mildly distended. Bowel sounds are normal in intensity and frequency. No organomegaly. No ascites. No tenderness to palpation in any specific areas. EXTREMITIES: Showed no clubbing, cyanosis or edema. Her left arm has an AV fistula that is patent with 2 button holes. NEUROLOGIC: Nonfocal. laboratory and microbiology Laboratory Tests 07/22/25 07:15 Test 07/22/25 07:15 Range/Units Serum Glucose 137 H 74-106 mg/dL Assessment/Plan ASSESSMENT AND PLAN: * End-stage renal disease, stable * Anemia of renal disease, hemoglobin is stable. * Gastroenteritis, improved * Controlled hypertension. * Diabetic nephropathy. * Patient apparently used home O2, she came to [place] without it, now they are waiting top get oxygen tank delivered to her home... she wants top go back top her home State PLEASE SEND HER HOME . Dietary Evaluation Review Comments: Check lipid profile, CCHO-60 Renal standard diet Weight management upon D/C Expected Outcomes/Goals: controlled serun glucose, gradual weight loss Plan discussed with: Patient, Other ANDRIY CUMMINS MD Jul 26, 2025 12:37
--- NOTE | 2025-07-26 18:21 | DVHPN2 ---
Subjective In bed resting Reviewed: H&P Changes from previous H/P or p: No Changes General: Per HPI Eyes: No Pain, No Vision change, No Conjunctivae inflammation, No Eyelid inflammation, No Other, No Redness ENT: No Ear pain, No Ear discharge, No Nose pain, No Nose discharge, No Nose congestion, No Mouth pain, No Mouth swelling, No Throat pain, No Throat swelling, No Other Cardiovascular: No Chest Pain, No Palpitations, No Orthopnea, No Paroxysmal Noc. Dyspnea, No Edema, No Lt Headedness, No Other Respiratory: Cough; No Dry; Shortness of breath; No SOB with excertion; W heezing; No Hemoptysis, No Pleuritic Pain, No Sputum, No Other Gastrointestinal: No Nausea, No Vomiting; Abdominal Pain; No Diarrhea, No Constipation, No Melena, No Hematochezia, No Other Genitourinary: No Dysuria, No Frequency, No Incontinence, No Hematuria, No Retention, No Other Musculoskeletal: No other, No neck pain, No shoulder pain, No arm pain; back pain; No hand pain, No leg pain, No foot pain Skin: No Rash, No Lesions, No Jaundice, No Bruising, No Other Objective Vitals Vital Signs Date Time Temp Pulse Resp B/P (MAP) Pulse Ox O2 Delivery O2 Flow Rate FiO2 07/26/25 16:34 98.2 91 18 139/73 (95) 97 98.2 07/26/25 08:00 Nasal Cannula* 2 28 Intake/Output Intake and Output 07/26/25 05:00 Intake Total 500 ml Balance 500 ml Intake Oral 400 ml IV Total 100 ml # Voids 1 # Bowel Movements 1 General Appearance: Alert, Oriented X3 HEENT: Atraumatic Lungs: Clear to auscultation Cardiovascular: Regular rate, Normal S1, Normal S2 Medications Current Medications Medications Dose Ordered Sig/Amena Route Start Time Stop Time Status Last Admin Dose Admin Sodium Chloride 10 ml Q8HR IV 07/20/25 14:00 07/26/25 14:08 10 ML Acetaminophen/ Hydrocodone Bitart 1 tab Q4HP PRN PO 07/20/25 13:15 07/25/25 06:47 1 TAB Docusate Sodium 100 mg BIDPRN PRN PO 07/20/25 13:15 Acetaminophen 650 mg Q6HP PRN PO 07/20/25 13:15 07/25/25 00:56 650 MG Nitroglycerin 0.4 mg Q5MINP PRN SL 07/20/25 13:15 Morphine Sulfate 2 mg Q30M PRN IV 07/20/25 13:15 Ondansetron HCl 4 mg Q4HP PRN IV 07/20/25 13:30 Diagnostic Test (Pha) 1 strip ACHS 07/20/25 17:00 07/26/25 17:17 1 STRIP Insulin Human Regular HS SC 07/20/25 22:00 07/25/25 21:47 3 UNITS Insulin Human Regular AC SC 07/20/25 17:00 07/26/25 11:30 6 UNITS Dextrose 50 ml UD PRN IV 07/20/25 15:00 Aspirin 81 mg DAILY PO 07/21/25 10:00 07/26/25 09:09 81 MG Clopidogrel Bisulfate 75 mg DAILY PO 07/21/25 10:00 07/26/25 09:09 75 MG Insulin Glargine 10 units DAILY SC 07/21/25 10:00 07/26/25 10:00 10 UNITS Atorvastatin Calcium 20 mg HS PO 07/20/25 22:00 07/25/25 21:46 20 MG Sevelamer HCl 2,400 mg TIDWM PO 07/21/25 08:00 07/26/25 17:17 2,400 MG Ipratropium [place] 0.5 mg Q4HWA [facility] 07/20/25 18:00 07/26/25 10:15 0.5 MG Albuterol 2.5 mg Q4HWA [facility] 07/20/25 18:00 07/26/25 10:15 2.5 MG Ceftriaxone Sodium 50 ml @ 100 mls/hr DAILY@09 IV 07/21/25 09:00 07/26/25 09:08 100 MLS/HR Metronidazole 100 ml @ 100 mls/hr Q8HR IV 07/21/25 14:00 07/26/25 13:51 100 MLS/HR Levothyroxine Sodium 150 mcg DAILY@0600 PO 07/26/25 06:15 07/26/25 06:22 150 MCG Laboratory Results Laboratory Tests 07/22/25 07:15 Microbiology Microbiology Date/Time Source Procedure Growth Status 07/20/25 09:09 Blood Blood Culture - Final NO GROWTH AFTER 5 DAYS OF INCUBATION. Complete Assessment/Plan Assessment/Plan 70-year-old female with past medial history of diabetes, ESRD on HD M,W,F, COPD, home oxygen as needed, SC, hypothyroidism, and hyperlipidemia, who came to the hospital for abdominal pain. Patient is visiting family from out of state. She states last night she began experiencing left back pain. She thought it would go away. Then in the morning the pain worsened and was now in her back and left pelvic region. She was also becoming short of breath. She has home oxygen ordered that she uses as needed, but she does not travel with it due to the TSA regulations. Patient had scheduled PTCA after a positive stress test 3 weeks ago. She had 2 stents placed, making her have a total of 5 stents. Cardiovascular: HTN, SC, hyperipidemia, Other (PTCA with 5 stents) 07/21: Symptoms align with gastroenteritis. Patient had abdominal pain onset with significant diarrhea and nausea which are now improving. We will continue antibiotics. Continue dialysis for ESRD. The patient continues to improve tomorrow patient discharge. On 1 L oxygen 07/22: Overnight report possible bloody bowel movement? Melena. We will check CBC after dialysis today. Patient is still hypoxic, apparently uses home oxygen but developed traveled without oxygen as the airlines would not allow it. We will check oxygen and blood level after dialysis to see if patient is stable for discharge. If not we will keep patient admitted and continue further workup and treatment. 07/23: Patient discharge see DC summary from 07/23/202507/24: Patient is still waiting for oxygen delivery, discharge done yesterday, patient can be discharged as soon as oxygen POC is delivered at bedside. Continue ESRD HD schedule until oxygen been delivered. 07/25: Comfortable in bed, waiting on oxygen 07/26 Still waiting on oxygen Diagnosis: Acute hypoxic respiratory failure Aspiration pneumonitis possible Acute gastroenteritis, infectious etiology likely Hyperkalemia Hyperglycemia Pleural effusions Leukocytosis, possibly from missed dialysis diabetes ESRD on HD M,W,F COPD, home oxygen as needed SC hypothyroidism hyperlipidemia Plan: IV antibiotics Consult resume dialysis patient Insulin sliding scale moderate a.c. HS Continue home medications Pepcid 20 IV b.i.d. Tele Full code Plan discussed with: Patient Date of Service: Jul 26, 2025 Billing Provider: GAURANG AMOR MD Common Visit Codes: [id number] INP/OBS CARE(HIGH) GAURANG AMOR MD Jul 26, 2025 18:21
[2025-07-26] MEDS: guaiFENesin-DM 100/10mg/5ml SYR PO PRN (23:09)
[2025-07-27] VITALS (9 sets, daily range): BP systolic 116–159; BP diastolic 63–78; PULSE 85–94; RESP 14–22; TEMP 97.2–97.6; O2SAT 90–100
--- NOTE | 2025-07-27 08:44 | DVHPN2 ---
Progress Note - Dictate Date Seen: Jul 27, 2025 Has the PT tested + for MRSA If YES, has PT been informed?: No Medical Necessity Reason Pt with a Central, PICC or Fol: No Subjective no acute issues scheduled for dialysis today vital signs Vital Sign Date Time Temp Pulse Resp B/P (MAP) Pulse Ox O2 Delivery O2 Flow Rate FiO2 07/27/25 06:44 85 14 100 07/27/25 06:38 Nasal Cannula* 3 32 07/27/25 04:55 97.5 130/64 (86) 97.5 Total Intake and Output 07/26/25 07/26/25 07/27/25 15:00 23:00 07:00 Intake Total 400 ml 100 ml Balance 400 ml 100 ml medications Current Medications Medications Dose Ordered Sig/Amena Route Start Time Stop Time Status Last Admin Dose Admin Sodium Chloride 10 ml Q8HR IV 07/20/25 14:00 07/27/25 06:09 10 ML Acetaminophen/ Hydrocodone Bitart 1 tab Q4HP PRN PO 07/20/25 13:15 07/27/25 02:45 1 TAB Docusate Sodium 100 mg BIDPRN PRN PO 07/20/25 13:15 Acetaminophen 650 mg Q6HP PRN PO 07/20/25 13:15 07/25/25 00:56 650 MG Nitroglycerin 0.4 mg Q5MINP PRN SL 07/20/25 13:15 Morphine Sulfate 2 mg Q30M PRN IV 07/20/25 13:15 Ondansetron HCl 4 mg Q4HP PRN IV 07/20/25 13:30 Diagnostic Test (Pha) 1 strip ACHS 07/20/25 17:00 07/27/25 06:09 1 STRIP Insulin Human Regular HS SC 07/20/25 22:00 07/26/25 21:45 3 UNITS Insulin Human Regular AC SC 07/20/25 17:00 07/27/25 06:09 2 UNITS Dextrose 50 ml UD PRN IV 07/20/25 15:00 Aspirin 81 mg DAILY PO 07/21/25 10:00 07/26/25 09:09 81 MG Clopidogrel Bisulfate 75 mg DAILY PO 07/21/25 10:00 07/26/25 09:09 75 MG Insulin Glargine 10 units DAILY SC 07/21/25 10:00 07/26/25 10:00 10 UNITS Atorvastatin Calcium 20 mg HS PO 07/20/25 22:00 07/26/25 21:38 20 MG Sevelamer HCl 2,400 mg TIDWM PO 07/21/25 08:00 07/26/25 17:17 2,400 MG Ipratropium [place] [address] [facility] 07/20/25 18:00 07/27/25 06:36 0.5 MG Albuterol 2.[address] [facility] 07/20/25 18:00 07/27/25 06:35 2.5 MG Ceftriaxone Sodium 50 ml @ 100 mls/hr DAILY@09 IV 07/21/25 09:00 07/26/25 09:08 100 MLS/HR Metronidazole 100 ml @ 100 mls/hr Q8HR IV 07/21/25 14:00 07/27/25 06:03 100 MLS/HR Levothyroxine Sodium 150 mcg DAILY@0600 PO 07/26/25 06:15 07/27/25 06:03 150 MCG Guaifenesin/ Dextromethorphan 10 ml Q6HP PRN PO 07/26/25 23:00 07/26/25 23:09 10 ML objective GENERAL: The patient is an elderly -[place] female, moderately obese, who seems to be chronically ill, in no acute distress. Alert and oriented x3. HEENT: Unremarkable. Oral mucosa is pale and dry. LUNGS: Clear to auscultation. CARDIOVASCULAR: Shows regular rate. No gallops. No murmurs. ABDOMEN: Soft, mildly distended. Bowel sounds are normal in intensity and frequency. No organomegaly. No ascites. No tenderness to palpation in any specific areas. EXTREMITIES: Showed no clubbing, cyanosis or edema. Her left arm has an AV fistula that is patent with 2 button holes. NEUROLOGIC: Nonfocal. laboratory and microbiology Laboratory Tests 07/22/25 07:15 Test 07/22/25 07:15 Range/Units Serum Glucose 137 H 74-106 mg/dL Problem List ASSESSMENT AND PLAN: * End-stage renal disease, stable * Anemia of renal disease, hemoglobin is stable. * Abdominal pain of unclear etiology. Imaging is negative, improved * Controlled hypertension. * Diabetic nephropathy. Assessment/Plan HD today . Stable to be dced from renal standpoint Dietary Evaluation Review Comments: Check lipid profile, CCHO-60 Renal standard diet Weight management upon D/C Expected Outcomes/Goals: controlled serun glucose, gradual weight loss Plan discussed with: Patient ARUNA CALDERON MD Jul 27, 2025 08:44
[2025-07-27] MEDS ORDERED: SODIUM CHL 0.9% 1000 ML BAG XX ONE (09:15)
--- NOTE | 2025-07-27 10:23 | DVHPN2 ---
Reviewed: H&P Changes from previous H/P or p: No Changes General: Per HPI Eyes: No Pain, No Vision change, No Conjunctivae inflammation, No Eyelid inflammation, No Other, No Redness ENT: No Ear pain, No Ear discharge, No Nose pain, No Nose discharge, No Nose congestion, No Mouth pain, No Mouth swelling, No Throat pain, No Throat swelling, No Other Cardiovascular: No Chest Pain, No Palpitations, No Orthopnea, No Paroxysmal Noc. Dyspnea, No Edema, No Lt Headedness, No Other Respiratory: Cough; No Dry; Shortness of breath; No SOB with excertion; W heezing; No Hemoptysis, No Pleuritic Pain, No Sputum, No Other Gastrointestinal: No Nausea, No Vomiting; Abdominal Pain; No Diarrhea, No Constipation, No Melena, No Hematochezia, No Other Genitourinary: No Dysuria, No Frequency, No Incontinence, No Hematuria, No Retention, No Other Musculoskeletal: No other, No neck pain, No shoulder pain, No arm pain; back pain; No hand pain, No leg pain, No foot pain Skin: No Rash, No Lesions, No Jaundice, No Bruising, No Other Objective Vitals Vital Signs Date Time Temp Pulse Resp B/P (MAP) Pulse Ox O2 Delivery O2 Flow Rate FiO2 07/27/25 09:00 97.3 94 20 116/63 (80) 91 97.3 07/27/25 07:50 Nasal Cannula* 2 28 Intake/Output Intake and Output 07/27/25 07:00 Intake Total 500 ml Balance 500 ml Intake Oral 400 ml IV Total 100 ml # Voids 3 # Bowel Movements 3 Exam GEN: Healthy appearing, well-developed, NAD. HEENT: NC/AT; MMM. CV: RRR, no m/r/g. LUNGS: CTAB, no w/r/c. ABD: Hypoactive bowel sounds all melchor, mild tender to left flank and epigastrium. EXT: skin Warm, well perfused. no rashes. No clubbing, cyanosis, or edema. NEURO: Ambulating with no limitations. No focal deficits. General Appearance: Alert, Oriented X3 HEENT: Atraumatic Lungs: Clear to auscultation Cardiovascular: Regular rate, Normal S1, Normal S2 Medications Current Medications Medications Dose Ordered Sig/Amena Route Start Time Stop Time Status Last Admin Dose Admin Sodium Chloride 10 ml Q8HR IV 07/20/25 14:00 07/27/25 06:09 10 ML Acetaminophen/ Hydrocodone Bitart 1 tab Q4HP PRN PO 07/20/25 13:15 07/27/25 02:45 1 TAB Docusate Sodium 100 mg BIDPRN PRN PO 07/20/25 13:15 Acetaminophen 650 mg Q6HP PRN PO 07/20/25 13:15 07/25/25 00:56 650 MG Nitroglycerin 0.4 mg Q5MINP PRN SL 07/20/25 13:15 Morphine Sulfate 2 mg Q30M PRN IV 07/20/25 13:15 Ondansetron HCl 4 mg Q4HP PRN IV 07/20/25 13:30 Diagnostic Test (Pha) 1 strip ACHS 07/20/25 17:00 07/27/25 06:09 1 STRIP Insulin Human Regular HS SC 07/20/25 22:00 07/26/25 21:45 3 UNITS Insulin Human Regular AC SC 07/20/25 17:00 07/27/25 06:09 2 UNITS Dextrose 50 ml UD PRN IV 07/20/25 15:00 Aspirin 81 mg DAILY PO 07/21/25 10:00 07/27/25 09:18 81 MG Clopidogrel Bisulfate 75 mg DAILY PO 07/21/25 10:00 07/27/25 09:18 75 MG Insulin Glargine 10 units DAILY SC 07/21/25 10:00 07/26/25 10:00 10 UNITS Atorvastatin Calcium 20 mg HS PO 07/20/25 22:00 07/26/25 21:38 20 MG Sevelamer HCl 2,400 mg TIDWM PO 07/21/25 08:00 07/26/25 17:17 2,400 MG Ipratropium [place] 0.5 mg Q4HWA [facility] 07/20/25 18:00 07/27/25 06:36 0.5 MG Albuterol 2.5 mg Q4HWA [facility] 07/20/25 18:00 07/27/25 06:35 2.5 MG Ceftriaxone Sodium 50 ml @ 100 mls/hr DAILY@09 IV 07/21/25 09:00 07/27/25 09:17 100 MLS/HR Metronidazole 100 ml @ 100 mls/hr Q8HR IV 07/21/25 14:00 07/27/25 06:03 100 MLS/HR Levothyroxine Sodium 150 mcg DAILY@0600 PO 07/26/25 06:15 07/27/25 06:03 150 MCG Guaifenesin/ Dextromethorphan 10 ml Q6HP PRN PO 07/26/25 23:00 07/26/25 23:09 10 ML Laboratory Results Laboratory Tests 07/22/25 07:15 Microbiology Microbiology Date/Time Source Procedure Growth Status 07/20/25 09:09 Blood Blood Culture - Final NO GROWTH AFTER 5 DAYS OF INCUBATION. Complete Labs and/or images reviewed: Labs reviewed by me, Image(s) reviewed by me Assessment/Plan Assessment/Plan 70-year-old female with past medial history of diabetes, ESRD on HD M,W,F, COPD, home oxygen as needed, [place], hypothyroidism, and hyperlipidemia, who came to the hospital for abdominal pain. Patient is visiting family from out of state. She states last night she began experiencing left back pain. She thought it would go away. Then in the morning the pain worsened and was now in her back and left pelvic region. She was also becoming short of breath. She has home oxygen ordered that she uses as needed, but she does not travel with it due to the TSA regulations. Patient had scheduled PTCA after a positive stress test 3 weeks ago. She had 2 stents placed, making her have a total of 5 stents. Cardiovascular: HTN, DC, hyperipidemia, Other (PTCA with 5 stents) 07/21: Symptoms align with gastroenteritis. Patient had abdominal pain onset with significant diarrhea and nausea which are now improving. We will continue antibiotics. Continue dialysis for ESRD. The patient continues to improve tomorrow patient discharge. On 1 L oxygen 07/22: Overnight report possible bloody bowel movement? Melena. We will check CBC after dialysis today. Patient is still hypoxic, apparently uses home oxygen but developed traveled without oxygen as the airlines would not allow it. We will check oxygen and blood level after dialysis to see if patient is stable for discharge. If not we will keep patient admitted and continue further workup and treatment. 07/23: Patient discharge see DC summary from 07/23/202507/24: Patient is still waiting for oxygen delivery, discharge done yesterday, patient can be discharged as soon as oxygen POC is delivered at bedside. Continue ESRD HD schedule until oxygen been delivered. Plan 07/27: Patient has oxygen delivered today, be discharge today after dialysis. Diagnosis: Acute hypoxic respiratory failure Aspiration pneumonitis possible Acute gastroenteritis, infectious etiology likely Hyperkalemia Hyperglycemia Pleural effusions Leukocytosis, possibly from missed dialysis diabetes ESRD on HD M,W,F COPD, home oxygen as needed DC hypothyroidism hyperlipidemia Plan: IV antibiotics Consult resume dialysis patient Insulin sliding scale moderate a.c. HS Continue home medications Pepcid 20 IV b.i.d. Tele Full code Plan discussed with: Patient Date of Service: Jul 27, 2025 Billing Provider: JOSE G ANGUIANO MD Common Visit Codes: [id number] INP/OBS CARE(MOD) JOSE G ANGUIANO MD Jul 27, 2025 10:23
== END 2025-07-27 15:20 | disposition home or self-care (01) | DRG 640 ==
LOC: ER 08:08 → OVERFLOW 13:01 → ER 13:09 → TELE-WESTW 21:24
PROVIDERS: ADMIT Student in an Organized Health Care Education/Training Program; ATTEND Student in an Organized Health Care Education/Training Program
PROC: 5A1D70Z Performance of Urinary Filtration, Intermittent, Less than 6 Hours Per Day (ICD-10-PCS; 2025-07-20)
PROC: 5A1D70Z Performance of Urinary Filtration, Intermittent, Less than 6 Hours Per Day (ICD-10-PCS; 2025-07-22)
PROC: 5A09357 Assistance with Respiratory Ventilation, Less than 24 Consecutive Hours, Continuous Positive Airway Pressure (ICD-10-PCS; principal; 2025-07-23)
PROC: 5A1D70Z Performance of Urinary Filtration, Intermittent, Less than 6 Hours Per Day (ICD-10-PCS; 2025-07-23)
PROC: 5A09357 Assistance with Respiratory Ventilation, Less than 24 Consecutive Hours, Continuous Positive Airway Pressure (ICD-10-PCS; 2025-07-24)
DX: E87.70 Fluid overload, unspecified (principal); I21.9 Acute myocardial infarction, unspecified; J96.01 Acute respiratory failure with hypoxia; N18.6 End stage renal disease; I12.0 Hypertensive chronic kidney disease with stage 5 chronic kidney disease or end stage renal disease; J90 Pleural effusion, not elsewhere classified; Z99.2 Dependence on renal dialysis; D63.1 Anemia in chronic kidney disease; E11.65 Type 2 diabetes mellitus with hyperglycemia; E03.9 Hypothyroidism, unspecified; J44.9 Chronic obstructive pulmonary disease, unspecified; A09 Infectious gastroenteritis and colitis, unspecified; E87.5 Hyperkalemia; E78.5 Hyperlipidemia, unspecified; E11.21 Type 2 diabetes mellitus with diabetic nephropathy; M54.9 Dorsalgia, unspecified; E11.22 Type 2 diabetes mellitus with diabetic chronic kidney disease; Z79.02 Long term (current) use of antithrombotics/antiplatelets; Z79.82 Long term (current) use of aspirin; Z79.899 Other long term (current) drug therapy; Z83.3 Family history of diabetes mellitus; Z98.61 Coronary angioplasty status; Z99.81 Dependence on supplemental oxygen; Z91.158 Patient's noncompliance with renal dialysis for other reason
CPT/HCPCS: 36415; 36600; 71045; 74176; 80053; 82270; 82805; 82962; 83605; 83690; 84484; 85025; 87040; 87340; 90935; 93005; 93306; 94640; 94660; 96361; 96365; 96367; G0378; J1815; J3490